=== PATIENT | female | born 1940 | race Caucasian/White ===

== ENCOUNTER 2019-07-20 11:12 | Emergency (ER) | payer MEDICARE, OTHER ==
[~2019-07-20] VITALS: Ht 167.6 cm; Wt 78.2 kg
[2019-07-20 11:27] VITALS: BP 167/86
[2019-07-20] MEDS ORDERED: ketorolac tromethamine 15mg/ml inj. IM ONE (13:00)
== END 2019-07-20 15:14 | disposition home or self-care (01) ==
LOC: ER 11:13
DX: M54.5 Low back pain (principal); I48.91 Unspecified atrial fibrillation; I25.10 Atherosclerotic heart disease of native coronary artery without angina pectoris; E78.00 Pure hypercholesterolemia, unspecified; Z88.5 Allergy status to narcotic agent
CPT/HCPCS: 74176; 96372; 99284; J1885

== ENCOUNTER 2019-12-02 22:24 | Inpatient (IN) | payer BC, MEDICARE, OTHER ==
[~2019-12-02] VITALS: Ht 157.5 cm; Wt 97.1 kg
[~2019-12-02 22:24] MED LIST: etomidate 2mg/ml inj. ONE; heparin, porcine-25,000 units/D5-250ml premix IV ONE; rocuronium 10mg/ml inj IV ONE; sodium bicarbonate (8.4%) 1 mEq/ml syringe ONE
--- NOTE | 2019-12-02 22:25 | NUR ---
PT ARRIVED IN ER AT 2224 WITH CPR IN PROGRESS. 2227 1 MG EPI AND 1 L NS ADMINISTERED. 2227 1 AMP CALCIUM. 9 1 AMP BICARB. 2230 ROSC HR 107 BP 172/62 SPO2 85/ PETCO2 26 1 MG EPI
[2019-12-02] MEDS: heparin 25,000 UNIT/250ml bag 250 ML IV SCH ×2 (22:39→23:06)
[2019-12-02] MEDS ORDERED: heparin 10,000 units/1 ML INJ IV ONE (22:40)
[2019-12-02 22:51] LABS: ABG HCO3 14.3 mmol/L (22.0-26.0); ABG OXYGEN SATURATION 89.6 % (95-98); ABG PH (T) 7.104 (7.350-7.450); ABG PO2 (T) 74.5 mmHg (83-108); ALLEN'S TEST POSITIVE; FCOHb 0.3 % (0.5-1.5); FMetHb 0.2 % (0.3-1.12); FO2Hb 89.2 % (94-100); PATIENT TEMPERATURE 36.1; PEEP 5 cm H2O; RESPIRATORY RATE 16 b/min; TIDAL VOLUME 475 mL; TOTAL HEMOGLOBIN 11.4 G/dl (12.0-16.0)
[2019-12-02 22:57] LABS: PARTIAL THROMBOPLASTIN TIME 28 SECONDS (22-32)
[2019-12-02 23:02] LABS: ALANINE AMINOTRANSFERASE 149 U/L (12-78); ALBUMIN 3.1 G/DL (3.4-5.0); ALBUMIN/GLOBULIN RATIO 1.2 (1.1-1.5); ALKALINE PHOSPHATASE 74 IU/L (46-116); ANION GAP 13 (8-16); ASPARTATE AMINO TRANSFERASE 136 U/L (10-37); BILIRUBIN,TOTAL 0.2 MG/DL (0.1-1.0); BLOOD UREA NITROGEN 30 MG/DL (7-18); BUN/CREATININE RATIO 23.8 (6.6-38.0); CALCIUM 7.7 MG/DL (8.5-10.1); CHLORIDE 108 MMOL/L (99-107); CREATININE 1.26 MG/DL (0.40-0.90); GLUCOSE 197 MG/DL (70-104); POTASSIUM 3.2 MMOL/L (3.5-5.1); SODIUM 142 MMOL/L (135-145); TOTAL CARBON DIOXIDE 20.8 MMOL/L (24-32); TOTAL PROTEIN 5.7 G/DL (6.4-8.2); eGFR 41 ML/MIN
[2019-12-02 23:04] LABS: EOSINOPHILS # (AUTO) 0.2 X10'3 (0-0.9); EOSINOPHILS % (AUTO) 1.5 % (0-6); HEMOGLOBIN 11.8 g/dl (12.0-16.0); LYMPHOCYTES # (AUTO) 7.3 X10'3 (1.1-4.8); MONOCYTES # (AUTO) 0.5 X10'3 (0-0.9); NEUTROPHILS # (AUTO) 3.1 X10'3 (1.8-7.7); WHITE BLOOD COUNT 11.1 X10'3 (4.5-11.0)
--- NOTE | 2019-12-02 23:05 | NUR ---
DR. LARA AT THE BEDSIDE PT GOING TO MAKEUP ARTISTRY INSTRUCTOR. dR LARA VERBAL ORDER FOR 6000 UNITS OF HEPARIN BOLUS INSTEAD OF 4000 UNITS FROM PROTOCAOL. CHARGE NURSE VERFIED.
--- NOTE | 2019-12-02 23:05 | NUR ---
PT HAD A RUN OF V TACH. DR ALVARADO CALLED TO BEDSIDE. [address] ALVARADO AT BEDSIDE.
[2019-12-02 23:06] LABS: BASOPHILS # (AUTO) 0.1 X10'3 (0-0.2); BASOPHILS % (AUTO) 0.6 % (0-1); LYMPHOCYTES % (AUTO) 65.4 % (21-51); MEAN CORPUSCULAR HEMOGLOBIN 31.8 PG (27.0-31.0); MEAN CORPUSCULAR HGB CONC 32.9 g/dL (33.0-36.5); MEAN CORPUSCULAR VOLUME 96.5 FL (78-98); MEAN PLATELET VOLUME 8.8 FL (7.4-10.4); MONOCYTES % (AUTO) 4.6 % (2-12); NEUTROPHILS % (AUTO) 27.9 % (42-75); PLATELET COUNT 155 X10'3 (140-440); RED BLOOD COUNT 3.73 X10'6 (4.20-5.60); RED CELL DISTRIBUTION WIDTH 13.8 % (11.5-14.5)
[2019-12-02] MEDS ORDERED: midazolam 2 mg/2 ml injection ONE (23:10)
[2019-12-02] MEDS ORDERED: tirofiban 5mg in NS 100mL 100 ML IV ONE (23:10)
[2019-12-02] MEDS ORDERED: fentaNYL/PF 50MCG/1 ML 2ML syringe ONE (23:10)
[2019-12-02] MEDS ORDERED: iohexol 350 MG/1 ML 200ml bottle ONE (23:11)
[2019-12-02] MEDS ORDERED: LIDOcaine 1% (10mg/ml)w/preservative injection 20ml MDV ONE (23:11)
[2019-12-02] MEDS ORDERED: heparin 25,000 UNIT/250ml bag 250 ML IV ONE (23:11)
[2019-12-02] MEDS ORDERED: heparin 1,000unit/ml 10ml vial 10 ML ONE (23:11)
[2019-12-02] MEDS ORDERED: iohexol 350 MG/ML 50ML vial IV ONE (23:11)
[2019-12-02] MEDS ORDERED: midazolam 100mg in NS 100ml 100 ML IV PRN (23:12)
[2019-12-02] MEDS ORDERED: FENTANYL-0.9 % NACL/PF 100 ML IV PRN (23:12)
[2019-12-02] MEDS: amiodarone/D5 360MG/200ML BAG 200 ML IV SCH (23:14)
[2019-12-02] MEDS ORDERED: fentaNYL/PF 50MCG/1 ML 2ML syringe IV PRN (23:15)
[2019-12-02] MEDS ORDERED: midazolam 2 mg/2 ml injection IV ONE (23:15)
--- NOTE | 2019-12-02 23:15 | NUR ---
COOLING MEASURE IMPLIMENTED, THOMPSON CATH INSERTED.
[2019-12-02] MEDS ORDERED: acetaminophen 325mg tablet PO PRN ×2 (23:20)
[2019-12-02] MEDS ORDERED: potassium Cl 20 mEq SR tablet PO PRN ×2 (23:20)
[2019-12-02] MEDS ORDERED: magnesium hydroxide 30ml (MOM) UD suspension PO PRN (23:20)
[2019-12-02] MEDS ORDERED: ipratropium/albuterol 3ml nebule NEB PRN (23:20)
[2019-12-02] MEDS: K, MAG and/or Phos replacement - Verify level? MC SCH (23:20)
[2019-12-02] MEDS ORDERED: ondansetron/PF 4mg/2ml inj IV PRN (23:20)
[2019-12-02] MEDS ORDERED: CISatracurium **Bolus** 2 mg/ml inj IV PRN (23:25)
--- NOTE | 2019-12-02 23:26 | NUR ---
OFF TO TRACK EQUIPMENT OPERATOR
[2019-12-02 23:28] LABS: TOTAL CELLS COUNTED 100
[2019-12-02 23:29] LABS: PLATELET ESTIMATE NORMAL
[2019-12-02] MEDS ORDERED: DOBUTamine-DoBUTrex 500mg/D5W 250 ML IV ONE (23:39)
[2019-12-03] VITALS (36 sets, daily range): BP systolic 64–117; BP diastolic 32–69
[2019-12-03] MEDS ORDERED: fentaNYL/PF 50MCG/1 ML 2ML syringe ONE (00:26)
[2019-12-03] MEDS ORDERED: midazolam 2 mg/2 ml injection ONE (00:27)
[2019-12-03] MEDS ORDERED: NORepinephrine 8mg/ 250ml NS 250 ML IV ONE (01:12)
[2019-12-03] MEDS ORDERED: NORepinephrine inj. 8 MG in normal saline 250ml IV soln 242 ML IV SCH (01:15)
[2019-12-03 01:31] LABS: OXYGEN SATURATION (MIXED VEN) 42.5 % (60-80); PO2 MIXED VENOUS (TEMP COR) 23.6 mmHg (35-46)
[2019-12-03 01:35] LABS: ABG BASE EXCESS -10.1 mmol/L (-2.0-3.0); ABG HCO3 15.2 mmol/L (22.0-26.0); ABG OXYGEN SATURATION 83.5 % (95-98); ABG PCO2 (T) 29.2 mmHg (35.0-45.0); ABG PH (T) 7.325 (7.350-7.450); ABG PO2 (T) 45.8 mmHg (83-108); FCOHb 0.3 % (0.5-1.5); FO2Hb 83.2 % (94-100); PATIENT TEMPERATURE 35.1; PEEP 5 cm H2O; RESPIRATORY RATE 20 b/min; TIDAL VOLUME 475 mL; TOTAL HEMOGLOBIN 12.3 G/dl (12.0-16.0)
[2019-12-03] MEDS: NORepinephrine 8 MG in NS 250ml IV soln IV SCH ×4 (01:49→20:30)
[2019-12-03] MEDS ORDERED: pantoprazole 40 MG vial IV ONE (02:25)
[2019-12-03] MEDS ORDERED: cyclobenzaprine 10mg tablet PO PRN (02:30)
[2019-12-03] MEDS ORDERED: magnesium hydroxide 30ml (MOM) UD suspension PO PRN (02:30)
[2019-12-03] MEDS ORDERED: acetaminophen 325mg tablet PO PRN (02:30)
[2019-12-03] MEDS ORDERED: OXAZEpam 15mg capsule PO PRN (02:30)
[2019-12-03] MEDS ORDERED: proCHLORperazine 10 MG/2 ml inj IV PRN (02:30)
--- NOTE | 2019-12-03 02:30 | NUR ---
Gladis called and update given on patient's condition; CO/CI low despite dobutamine at 8mcg; mixed venous 42; aware that pt having moderate BRB orally as well as some blood in stool; Dr. Phillips called and updated, MD still wanting pt to continue heparin/aggarastat and give dose of plavix 300 from quality assurance/r&d lab technician.
[2019-12-03] MEDS: normal saline 1000ml 1,000 ML IV SCH (02:35)
[2019-12-03] MEDS ORDERED: clopidogrel 75mg tablet PO ONE (02:40)
[2019-12-03 02:45] LABS: BASOPHILS % (AUTO) 0.2 % (0-1); EOSINOPHILS # (AUTO) 0.1 X10'3 (0-0.9); EOSINOPHILS % (AUTO) 0.5 % (0-6); HEMATOCRIT 36.2 % (35.0-45.0); HEMOGLOBIN 12.1 g/dl (12.0-16.0); LYMPHOCYTES # (AUTO) 1.7 X10'3 (1.1-4.8); LYMPHOCYTES % (AUTO) 13.3 % (21-51); MEAN CORPUSCULAR HEMOGLOBIN 31.4 PG (27.0-31.0); MEAN CORPUSCULAR HGB CONC 33.4 g/dL (33.0-36.5); MEAN PLATELET VOLUME 8.3 FL (7.4-10.4); MONOCYTES # (AUTO) 0.4 X10'3 (0-0.9); MONOCYTES % (AUTO) 3.1 % (2-12); NEUTROPHILS # (AUTO) 10.7 X10'3 (1.8-7.7); NEUTROPHILS % (AUTO) 82.9 % (42-75); PLATELET COUNT 221 X10'3 (140-440); RED BLOOD COUNT 3.85 X10'6 (4.20-5.60); RED CELL DISTRIBUTION WIDTH 13.5 % (11.5-14.5); WHITE BLOOD COUNT 12.9 X10'3 (4.5-11.0)
[2019-12-03 03:22] LABS: ALANINE AMINOTRANSFERASE 657 U/L (12-78); ALBUMIN 2.9 G/DL (3.4-5.0); ALBUMIN/GLOBULIN RATIO 1.1 (1.1-1.5); ALKALINE PHOSPHATASE 93 IU/L (46-116); ANION GAP 14 (8-16); ASPARTATE AMINO TRANSFERASE 1176 U/L (10-37); BILIRUBIN,TOTAL 0.4 MG/DL (0.1-1.0); BLOOD UREA NITROGEN 36 MG/DL (7-18); BUN/CREATININE RATIO 29.8 (6.6-38.0); CALCIUM 8.9 MG/DL (8.5-10.1); CHLORIDE 108 MMOL/L (99-107); CREATININE 1.21 MG/DL (0.40-0.90); GLUCOSE 187 MG/DL (70-104); MAGNESIUM 1.8 MG/DL (1.5-2.4); PHOSPHORUS 4.6 MG/DL (2.3-4.5); POTASSIUM 3.5 MMOL/L (3.5-5.1); SODIUM 141 MMOL/L (135-145); TOTAL CARBON DIOXIDE 18.6 MMOL/L (24-32); TOTAL PROTEIN 5.6 G/DL (6.4-8.2); eGFR 43 ML/MIN
--- NOTE | 2019-12-03 03:30 | NUR ---
PT arrived from Hospital Laboratory Technician @ 0045. PT already in ICU bed and placed on bedside monitor. PT has arterial and venous sheath to RT groin, site is oozy and hematoma present and stable thus far. PA line in place. PT has PIV x2, one to each arm. De Los Santos in place draining to gravity. PT is intubated and mechanically vented, tolerating settings well, O2 sat >96%. Sedated with Fentanyl and Versed, tolerating well. Cooling measures began @ 0230 via the [place], tolerating fairly, Sedating has been increased d/t PT shivering. Bed is locked and low. Will continue to monitor.
[2019-12-03 03:45] LABS: ABG BASE EXCESS -8.4 mmol/L (-2.0-3.0); ABG HCO3 15.8 mmol/L (22.0-26.0); ABG OXYGEN SATURATION 95.1 % (95-98); ABG PCO2 (T) 26.1 mmHg (35.0-45.0); ABG PH (T) 7.389 (7.350-7.450); ABG PO2 (T) 67.7 mmHg (83-108); FCOHb 0.3 % (0.5-1.5); FMetHb 0.1 % (0.3-1.12); FO2Hb 94.7 % (94-100); PATIENT TEMPERATURE 34.4; PEEP 8 cm H2O; RESPIRATORY RATE 20 b/min; TIDAL VOLUME 475 mL; TOTAL HEMOGLOBIN 12.6 G/dl (12.0-16.0)
[2019-12-03] MEDS: amiodarone/D5 360MG/200ML BAG 200 ML IV SCH ×4 (04:06→23:26)
[2019-12-03] MEDS: tirofiban 5mg in NS 100mL 100 ML IV SCH ×2 (04:06→08:21)
--- NOTE | 2019-12-03 06:15 | NUR ---
Patient in room ICU 2042. I have received report from evening or night nurse supervisor and had the opportunity to ask questions and assume patient care.
--- NOTE | 2019-12-03 06:45 | NUR ---
Problems reprioritized. Patient report given, questions answered & plan of care reviewed with Anjelica SUAZO .
[2019-12-03] MEDS: docusate sod 100mg capsule PO SCH ×2 (08:00→20:00)
[2019-12-03] MEDS ORDERED: aspirin 81mg tab.chew PO SCH (08:00)
[2019-12-03] MEDS: pantoprazole 40 MG vial IV SCH (08:10)
[2019-12-03] MEDS: FENTANYL-0.9 % NACL/PF 100 ML IV PRN ×2 (08:22→17:53)
[2019-12-03 08:26] LABS: BASOPHILS % (AUTO) 0.3 % (0-1); EOSINOPHILS % (AUTO) 0.3 % (0-6); HEMATOCRIT 32.1 % (35.0-45.0); LYMPHOCYTES # (AUTO) 1.6 X10'3 (1.1-4.8); LYMPHOCYTES % (AUTO) 17.3 % (21-51); MEAN CORPUSCULAR HEMOGLOBIN 32.1 PG (27.0-31.0); MEAN CORPUSCULAR HGB CONC 34.2 g/dL (33.0-36.5); MEAN CORPUSCULAR VOLUME 94.1 FL (78-98); MEAN PLATELET VOLUME 8.4 FL (7.4-10.4); MONOCYTES # (AUTO) 0.2 X10'3 (0-0.9); MONOCYTES % (AUTO) 2.7 % (2-12); NEUTROPHILS # (AUTO) 7.4 X10'3 (1.8-7.7); NEUTROPHILS % (AUTO) 79.4 % (42-75); PLATELET COUNT 176 X10'3 (140-440); RED BLOOD COUNT 3.41 X10'6 (4.20-5.60); RED CELL DISTRIBUTION WIDTH 13.6 % (11.5-14.5); WHITE BLOOD COUNT 9.3 X10'3 (4.5-11.0)
[2019-12-03] MEDS: K, MAG and/or Phos replacement - Verify level? MC SCH (08:37)
[2019-12-03 09:14] LABS: ALBUMIN 2.5 G/DL (3.4-5.0); ANION GAP 12 (8-16); BLOOD UREA NITROGEN 36 MG/DL (7-18); BUN/CREATININE RATIO 28.1 (6.6-38.0); CALCIUM 7.9 MG/DL (8.5-10.1); CHLORIDE 111 MMOL/L (99-107); CREATININE 1.28 MG/DL (0.40-0.90); GLUCOSE 172 MG/DL (70-104); MAGNESIUM 1.4 MG/DL (1.5-2.4); SODIUM 141 MMOL/L (135-145); TOTAL CARBON DIOXIDE 18.2 MMOL/L (24-32); eGFR 40 ML/MIN
[2019-12-03] MEDS: DOBUTamine-DoBUTrex 500mg/D5W 250 ML IV PRN ×2 (09:18→17:53)
--- NOTE | 2019-12-03 09:55 | NUR ---
Initial: patient presented to ED after cardiac arrest at home per H&P. History of Atrial Fibrillation, Coronary Artery Disease, High Cholesterol. Now intubated and sedated, hypothermia protocol. No tube feedings to begin today. Will continue to follow and monitor for rewarming. Recommend: 1. If TF while intubated when rewarmed recommend vital high protein at 70 ml/hr 2. If TF while intubated prealbumin q saturday and , daily weights, and monitor for additional water flush 3. weight per rx Addendum: 12/03/19 at [address] Amended: Links added.
[2019-12-03 09:56] LABS: CKMB RELATIVE INDEX 8.8 RATIO (0-2.5); CREATINE KINASE 6588 U/L (26-192)
[2019-12-03 09:58] LABS: POTASSIUM 2.4 MMOL/L (3.5-5.1)
[2019-12-03] MEDS ORDERED: CLOPIDOGREL BISULFATE 300MG TAB PO ONE (10:00)
[2019-12-03] MEDS: potassium Cl 20mEq/100mL bag 100 ML IV PRN ×4 (10:26→16:24)
--- NOTE | 2019-12-03 10:30 | NUR ---
Dr Phillips Called by Dr Carcamo for update no new orders at this time.
[2019-12-03] MEDS ORDERED: magnesium 2GM in 50ml NS 50 ML IV PRN (10:40)
[2019-12-03] MEDS ORDERED: dextrose 50%-water 50ml dispensing syringe IV PRN ×2 (10:40)
[2019-12-03] MEDS ORDERED: glucagon, human recombinant 1mg kit SUBCUT PRN (10:40)
[2019-12-03] MEDS ORDERED: MESSAGE TO PHARMACY PO ONE (10:40)
[2019-12-03] MEDS ORDERED: dextrose ORAL solution 15 GM/59 ML bottle PO PRN ×2 (10:40)
[2019-12-03] MEDS: magnesium 4gm in 100ml NS 100 ML IV PRN (11:04)
[2019-12-03 11:25] LABS: HEMOGLOBIN A1C 5.9 % (4.5-6.2)
--- NOTE | 2019-12-03 12:00 | NUR ---
decreased bood pressure md notified ordered vasoressin, started
[2019-12-03] MEDS: midazolam 100mg in NS 100ml 100 ML IV PRN (12:11)
[2019-12-03] MEDS: vasopressin inj. 40 UNIT in normal saline 50ml IV soln 38 ML IV SCH ×2 (12:21→23:05)
[2019-12-03] MEDS ORDERED: ASPI-611 PO (12:55)
[2019-12-03] MEDS ORDERED: ROSU5TAB12 PO (12:55)
[2019-12-03] MEDS ORDERED: BIOT10TA PO (12:55)
[2019-12-03] MEDS ORDERED: PSYL0.5210 PO (12:55)
[2019-12-03] MEDS ORDERED: CHOL10006 PO (12:55)
[2019-12-03] MEDS ORDERED: FLEC50TA PO (12:55)
[2019-12-03] MEDS ORDERED: CLOB15CR11 TOP (12:55)
[2019-12-03] MEDS ORDERED: FLUT16SP16 BOTHNARES (12:55)
[2019-12-03] MEDS ORDERED: LORA-660 PO (12:55)
[2019-12-03] MEDS ORDERED: METO-384 PO (12:55)
[2019-12-03] MEDS ORDERED: VITA1CAP19 PO (12:55)
[2019-12-03] MEDS ORDERED: BUTA1CAP3 PO (12:55)
--- NOTE | 2019-12-03 13:30 | NUR ---
Dr Phillips here discussed echo, lab results and gtts, ordered to dc aggrastat
[2019-12-03 14:10] LABS: BASOPHILS % (AUTO) 0.2 % (0-1); EOSINOPHILS % (AUTO) 0.4 % (0-6); HEMATOCRIT 32.1 % (35.0-45.0); HEMOGLOBIN 10.8 g/dl (12.0-16.0); LYMPHOCYTES # (AUTO) 1.5 X10'3 (1.1-4.8); MEAN CORPUSCULAR HEMOGLOBIN 31.4 PG (27.0-31.0); MEAN CORPUSCULAR HGB CONC 33.8 g/dL (33.0-36.5); MEAN PLATELET VOLUME 8.4 FL (7.4-10.4); MONOCYTES # (AUTO) 0.5 X10'3 (0-0.9); MONOCYTES % (AUTO) 6.8 % (2-12); NEUTROPHILS # (AUTO) 5.2 X10'3 (1.8-7.7); NEUTROPHILS % (AUTO) 71.6 % (42-75); PLATELET COUNT 183 X10'3 (140-440); RED BLOOD COUNT 3.45 X10'6 (4.20-5.60); RED CELL DISTRIBUTION WIDTH 13.3 % (11.5-14.5); WHITE BLOOD COUNT 7.3 X10'3 (4.5-11.0)
[2019-12-03] MEDS: insulin Lispro (HumaLOG) vial - multi-dose SQ SCH ×2 (14:16→21:17)
[2019-12-03 14:51] LABS: ALBUMIN 2.4 G/DL (3.4-5.0); ANION GAP 9 (8-16); BLOOD UREA NITROGEN 39 MG/DL (7-18); CALCIUM 7.5 MG/DL (8.5-10.1); CHLORIDE 111 MMOL/L (99-107); CREATININE 1.22 MG/DL (0.40-0.90); GLUCOSE 169 MG/DL (70-104); MAGNESIUM 3.3 MG/DL (1.5-2.4); POTASSIUM 3.4 MMOL/L (3.5-5.1); SODIUM 138 MMOL/L (135-145); TOTAL CARBON DIOXIDE 17.7 MMOL/L (24-32); eGFR 43 ML/MIN
[2019-12-03 15:08] LABS: CREATINE KINASE 6436 U/L (26-192)
[2019-12-03 16:47] LABS: CKMB RELATIVE INDEX 9.5 RATIO (0-2.5)
[2019-12-03] MEDS ORDERED: acetaminophen 325mg tablet NG PRN (17:35)
[2019-12-03] MEDS ORDERED: aspirin 81mg tab.chew NG SCH (17:38)
[2019-12-03] MEDS ORDERED: cyclobenzaprine 10mg tablet NG PRN (17:40)
[2019-12-03] MEDS ORDERED: magnesium hydroxide 30ml (MOM) UD suspension NG PRN ×2 (17:41)
[2019-12-03] MEDS ORDERED: POTASSIUM BICARB 20meq eff tab 20 MEQ TABLET.EFF PO PRN ×2 (17:42)
[2019-12-03] MEDS ORDERED: POTASSIUM BICARB 20meq eff tab 20 MEQ TABLET.EFF NG PRN ×2 (17:43)
[2019-12-03] MEDS ORDERED: dextrose ORAL solution 15 GM/59 ML bottle NG PRN ×2 (17:55)
--- NOTE | 2019-12-03 18:09 | NUR ---
Problems reprioritized. Patient report given, questions answered & plan of care reviewed with oncoming shift.
--- NOTE | 2019-12-03 18:44 | NUR ---
Patient in room ICU 2042. I have received report from Anjelica SUAZO, and had the opportunity to ask questions and assume patient care.
--- NOTE | 2019-12-03 19:45 | NUR ---
LISA Perez notified in regards to PT's home med [facility], there was a message on the eMAR in regards to the use of the medication with amiodarone. PT is on Amiodarone gtt. Order received to hold tonights dose and get clarification in the AM. Will continue to monitor.
[2019-12-03] MEDS ORDERED: flecainide 50mg tablet NG SCH (20:00)
[2019-12-03] MEDS ORDERED: psyllium seed 3.4 gm packet NG PRN (21:00)
[2019-12-03 21:01] LABS: BASOPHILS % (AUTO) 0.2 % (0-1); EOSINOPHILS % (AUTO) 0.2 % (0-6); HEMATOCRIT 30.3 % (35.0-45.0); HEMOGLOBIN 10.4 g/dl (12.0-16.0); LYMPHOCYTES # (AUTO) 1.3 X10'3 (1.1-4.8); LYMPHOCYTES % (AUTO) 18.9 % (21-51); MEAN CORPUSCULAR HEMOGLOBIN 32.1 PG (27.0-31.0); MEAN CORPUSCULAR HGB CONC 34.3 g/dL (33.0-36.5); MEAN CORPUSCULAR VOLUME 93.6 FL (78-98); MEAN PLATELET VOLUME 8.7 FL (7.4-10.4); MONOCYTES # (AUTO) 0.5 X10'3 (0-0.9); MONOCYTES % (AUTO) 7.1 % (2-12); NEUTROPHILS # (AUTO) 5.1 X10'3 (1.8-7.7); NEUTROPHILS % (AUTO) 73.6 % (42-75); PLATELET COUNT 178 X10'3 (140-440); RED BLOOD COUNT 3.24 X10'6 (4.20-5.60); RED CELL DISTRIBUTION WIDTH 13.3 % (11.5-14.5); WHITE BLOOD COUNT 6.9 X10'3 (4.5-11.0)
[2019-12-03] MEDS: clobetasol 0.05% cream 30gm TP SCH (21:13)
[2019-12-03] MEDS: insulin glargine (Lantus) pen - multi-dose SQ SCH (21:19)
[2019-12-03 21:41] LABS: ALBUMIN 2.3 G/DL (3.4-5.0); ANION GAP 13 (8-16); BLOOD UREA NITROGEN 40 MG/DL (7-18); BUN/CREATININE RATIO 34.8 (6.6-38.0); CALCIUM 7.5 MG/DL (8.5-10.1); CHLORIDE 110 MMOL/L (99-107); CREATININE 1.15 MG/DL (0.40-0.90); GLUCOSE 198 MG/DL (70-104); MAGNESIUM 2.3 MG/DL (1.5-2.4); POTASSIUM 4.1 MMOL/L (3.5-5.1); SODIUM 138 MMOL/L (135-145); eGFR 46 ML/MIN
[2019-12-03 22:22] LABS: CKMB RELATIVE INDEX 10.2 RATIO (0-2.5); CREATINE KINASE 5010 U/L (26-192)
[2019-12-03 22:25] LABS: TROPONIN I 240.06 NG/ML (0.0-0.05)
[2019-12-03 23:18] LABS: ALANINE AMINOTRANSFERASE 474 U/L (12-78); ALKALINE PHOSPHATASE 70 IU/L (46-116); ASPARTATE AMINO TRANSFERASE 866 U/L (10-37); BILIRUBIN,TOTAL 0.2 MG/DL (0.1-1.0); TOTAL PROTEIN 4.7 G/DL (6.4-8.2)
--- NOTE | 2019-12-03 23:45 | NUR ---
Recieived critical CO2 of 15.0. NO Ana notified, order received to draw a Lactic and ABG. After receiving ABG results order received for Bicarb gtt. Will continue to monitor.
[2019-12-04] VITALS (31 sets, daily range): BP systolic 89–121; BP diastolic 43–84
[2019-12-04] MEDS: NORepinephrine 8 MG in NS 250ml IV soln IV SCH ×8 (00:19→23:53)
[2019-12-04] MEDS: sodium bicarbonate (8.4%) inj. 100 MEQ in dextrose 5%-water 1,000 ML IV SCH ×2 (00:58→14:49)
[2019-12-04 01:21] LABS: ABG BASE EXCESS -12.8 mmol/L (-2.0-3.0); ABG HCO3 11.3 mmol/L (22.0-26.0); ABG OXYGEN SATURATION 94.4 % (95-98); ABG PCO2 (T) 18.5 mmHg (35.0-45.0); ABG PH (T) 7.384 (7.350-7.450); ABG PO2 (T) 65.6 mmHg (83-108); FCOHb 0.1 % (0.5-1.5); FMetHb 0.1 % (0.3-1.12); FO2Hb 94.2 % (94-100); PATIENT TEMPERATURE 33.4; PEEP 6 cm H2O; RESPIRATORY RATE 20 b/min; TIDAL VOLUME 475 mL; TOTAL HEMOGLOBIN 10.7 G/dl (12.0-16.0)
[2019-12-04] MEDS: FENTANYL-0.9 % NACL/PF 100 ML IV PRN ×3 (01:23→18:37)
[2019-12-04] MEDS: midazolam 100mg in NS 100ml 100 ML IV PRN ×2 (01:23→15:18)
[2019-12-04] MEDS: mineral oil/petrolatum ophthal oint EACHEYE SCH ×4 (02:00→20:36)
[2019-12-04] MEDS: DOBUTamine-DoBUTrex 500mg/D5W 250 ML IV PRN ×2 (02:38→12:36)
[2019-12-04] MEDS: insulin Lispro (HumaLOG) vial - multi-dose SQ SCH ×4 (02:47→20:51)
[2019-12-04 03:34] LABS: BASOPHILS % (AUTO) 0.1 % (0-1); EOSINOPHILS % (AUTO) 0.2 % (0-6); HEMATOCRIT 28.9 % (35.0-45.0); HEMOGLOBIN 9.9 g/dl (12.0-16.0); LYMPHOCYTES # (AUTO) 1.2 X10'3 (1.1-4.8); LYMPHOCYTES % (AUTO) 16.7 % (21-51); MEAN CORPUSCULAR HEMOGLOBIN 31.9 PG (27.0-31.0); MEAN CORPUSCULAR HGB CONC 34.2 g/dL (33.0-36.5); MEAN CORPUSCULAR VOLUME 93.3 FL (78-98); MEAN PLATELET VOLUME 8.7 FL (7.4-10.4); MONOCYTES # (AUTO) 0.4 X10'3 (0-0.9); MONOCYTES % (AUTO) 5.6 % (2-12); NEUTROPHILS # (AUTO) 5.8 X10'3 (1.8-7.7); NEUTROPHILS % (AUTO) 77.4 % (42-75); PLATELET COUNT 175 X10'3 (140-440); RED CELL DISTRIBUTION WIDTH 13.7 % (11.5-14.5); WHITE BLOOD COUNT 7.4 X10'3 (4.5-11.0)
[2019-12-04 04:06] LABS: ABG BASE EXCESS -11.5 mmol/L (-2.0-3.0); ABG HCO3 13.4 mmol/L (22.0-26.0); ABG OXYGEN SATURATION 90.7 % (95-98); ABG PCO2 (T) 23.5 mmHg (35.0-45.0); ABG PH (T) 7.357 (7.350-7.450); ABG PO2 (T) 52.6 mmHg (83-108); FCOHb 0.2 % (0.5-1.5); FMetHb 0.3 % (0.3-1.12); FO2Hb 90.2 % (94-100); PATIENT TEMPERATURE 33.7; PEEP 6 cm H2O; RESPIRATORY RATE 20 b/min; TIDAL VOLUME 475 mL
[2019-12-04 04:16] LABS: ALANINE AMINOTRANSFERASE 415 U/L (12-78); ALBUMIN 2.2 G/DL (3.4-5.0); ALKALINE PHOSPHATASE 66 IU/L (46-116); ANION GAP 12 (8-16); ASPARTATE AMINO TRANSFERASE 674 U/L (10-37); BILIRUBIN,TOTAL 0.2 MG/DL (0.1-1.0); BLOOD UREA NITROGEN 39 MG/DL (7-18); BUN/CREATININE RATIO 33.1 (6.6-38.0); CALCIUM 7.4 MG/DL (8.5-10.1); CHLORIDE 109 MMOL/L (99-107); CREATININE 1.18 MG/DL (0.40-0.90); GLUCOSE 249 MG/DL (70-104); MAGNESIUM 2.1 MG/DL (1.5-2.4); PHOSPHORUS 4.4 MG/DL (2.3-4.5); POTASSIUM 3.9 MMOL/L (3.5-5.1); SODIUM 137 MMOL/L (135-145); TOTAL CARBON DIOXIDE 15.8 MMOL/L (24-32); TOTAL PROTEIN 4.5 G/DL (6.4-8.2); eGFR 44 ML/MIN
[2019-12-04 04:26] LABS: CREATINE KINASE 3885 U/L (26-192)
[2019-12-04] MEDS: amiodarone/D5 360MG/200ML BAG 200 ML IV SCH ×4 (04:40→23:42)
[2019-12-04] MEDS: heparin 25,000 UNIT/250ml bag 250 ML IV SCH (05:34)
[2019-12-04] MEDS: heparin 10,000 units/1 ML INJ IV PRN ×2 (06:02→10:02)
--- NOTE | 2019-12-04 06:15 | NUR ---
Patient in room ICU 2042. I have received report from PREVIOUS SHIFT and had the opportunity to ask questions and assume patient care.
--- NOTE | 2019-12-04 06:39 | NUR ---
Problems reprioritized. Patient report given, questions answered & plan of care reviewed with Tonja SUAZO.
[2019-12-04] MEDS: pantoprazole 40 MG vial IV SCH (08:17)
[2019-12-04] MEDS: vitamin D (cholecalciferol) 1,000 unit tablet NG SCH (08:17)
[2019-12-04] MEDS: atorvastatin 20mg tablet NG SCH (08:17)
[2019-12-04] MEDS: clopidogrel 75mg tablet NG SCH (08:17)
[2019-12-04] MEDS: aspirin 81mg tab.chew NG SCH (08:17)
[2019-12-04] MEDS: docusate sod 100mg capsule PO SCH ×2 (08:17→20:00)
[2019-12-04] MEDS: clobetasol 0.05% cream 30gm TP SCH ×2 (08:25→20:36)
[2019-12-04 08:35] LABS: BASOPHILS % (AUTO) 0.2 % (0-1); EOSINOPHILS # (AUTO) 0.1 X10'3 (0-0.9); EOSINOPHILS % (AUTO) 0.8 % (0-6); HEMATOCRIT 25.7 % (35.0-45.0); HEMOGLOBIN 8.8 g/dl (12.0-16.0); LYMPHOCYTES # (AUTO) 1.4 X10'3 (1.1-4.8); LYMPHOCYTES % (AUTO) 19.6 % (21-51); MEAN CORPUSCULAR HEMOGLOBIN 31.8 PG (27.0-31.0); MEAN CORPUSCULAR HGB CONC 34.1 g/dL (33.0-36.5); MEAN CORPUSCULAR VOLUME 93.1 FL (78-98); MEAN PLATELET VOLUME 8.8 FL (7.4-10.4); MONOCYTES # (AUTO) 0.2 X10'3 (0-0.9); MONOCYTES % (AUTO) 3.3 % (2-12); NEUTROPHILS # (AUTO) 5.4 X10'3 (1.8-7.7); NEUTROPHILS % (AUTO) 76.1 % (42-75); PLATELET COUNT 147 X10'3 (140-440); RED BLOOD COUNT 2.76 X10'6 (4.20-5.60); RED CELL DISTRIBUTION WIDTH 13.8 % (11.5-14.5); WHITE BLOOD COUNT 7.1 X10'3 (4.5-11.0)
[2019-12-04] MEDS: K, MAG and/or Phos replacement - Verify level? MC SCH (08:38)
--- NOTE | 2019-12-04 10:00 | NUR ---
Dr anderson here to see patient, orders received.
[2019-12-04 10:33] LABS: ALBUMIN 1.9 G/DL (3.4-5.0); ANION GAP 11 (8-16); BLOOD UREA NITROGEN 39 MG/DL (7-18); BUN/CREATININE RATIO 33.9 (6.6-38.0); CALCIUM 6.9 MG/DL (8.5-10.1); CHLORIDE 109 MMOL/L (99-107); CREATININE 1.15 MG/DL (0.40-0.90); GLUCOSE 241 MG/DL (70-104); PHOSPHORUS 3.9 MG/DL (2.3-4.5); POTASSIUM 3.7 MMOL/L (3.5-5.1); SODIUM 137 MMOL/L (135-145); TOTAL CARBON DIOXIDE 17.5 MMOL/L (24-32); eGFR 46 ML/MIN
--- NOTE | 2019-12-04 11:25 | NUR ---
Reassessment: Pt remains intubated and on hypothermia protocol, currently in rewarming phase per RN at critical care rounds. No TF initiation at this time. Pt with low Nabil of 9. Per physical assessment pt with no edema or wounds. LBM 3/. Will continue to follow closely. Recommend: 1. If TF while intubated when rewarmed recommend vital high protein at 70 ml/hr 2. If TF while intubated prealbumin q Saturday and , daily weights, and monitor for additional water flush 3. weight per rx 4. PO diet advancement to heart healthy as medically indicated following extubation Addendum: 12/04/19 at [address] Amended: Links added.
[2019-12-04 11:28] LABS: UA EOSINOPHILS NO EOS /HPF
[2019-12-04 11:34] LABS: MAGNESIUM 1.8 MG/DL (1.5-2.4)
[2019-12-04] MEDS ORDERED: gelatin sponge, absorbable (Gelfoam 100) sponge TP ONE (14:30)
[2019-12-04 14:55] LABS: BASOPHILS % (AUTO) 0.1 % (0-1); EOSINOPHILS # (AUTO) 0.1 X10'3 (0-0.9); HEMATOCRIT 24.9 % (35.0-45.0); HEMOGLOBIN 8.5 g/dl (12.0-16.0); LYMPHOCYTES # (AUTO) 1.5 X10'3 (1.1-4.8); LYMPHOCYTES % (AUTO) 18.5 % (21-51); MEAN CORPUSCULAR HEMOGLOBIN 31.5 PG (27.0-31.0); MEAN CORPUSCULAR HGB CONC 34.2 g/dL (33.0-36.5); MEAN CORPUSCULAR VOLUME 92.2 FL (78-98); MONOCYTES # (AUTO) 0.6 X10'3 (0-0.9); MONOCYTES % (AUTO) 7.1 % (2-12); NEUTROPHILS # (AUTO) 5.8 X10'3 (1.8-7.7); NEUTROPHILS % (AUTO) 73.3 % (42-75); PLATELET COUNT 157 X10'3 (140-440); RED CELL DISTRIBUTION WIDTH 13.7 % (11.5-14.5); WHITE BLOOD COUNT 7.9 X10'3 (4.5-11.0)
--- NOTE | 2019-12-04 15:00 | NUR ---
pedro in and out of a-fib and sinus tac. Dr Carcamo aware orders received.
[2019-12-04] MEDS: normal saline 1000ml 1,000 ML IV SCH (15:03)
[2019-12-04 15:33] LABS: ALBUMIN 1.8 G/DL (3.4-5.0); ANION GAP 9 (8-16); BLOOD UREA NITROGEN 40 MG/DL (7-18); BUN/CREATININE RATIO 32.8 (6.6-38.0); CALCIUM 6.5 MG/DL (8.5-10.1); CHLORIDE 108 MMOL/L (99-107); CREATININE 1.22 MG/DL (0.40-0.90); GLUCOSE 199 MG/DL (70-104); MAGNESIUM 1.8 MG/DL (1.5-2.4); PHOSPHORUS 3.6 MG/DL (2.3-4.5); SODIUM 136 MMOL/L (135-145); TOTAL CARBON DIOXIDE 18.9 MMOL/L (24-32); eGFR 43 ML/MIN
[2019-12-04 15:35] LABS: CKMB RELATIVE INDEX 17.4 RATIO (0-2.5)
[2019-12-04 15:36] LABS: CREATINE KINASE 2264 U/L (26-192)
[2019-12-04 15:56] LABS: TROPONIN I 108.09 NG/ML (0.0-0.05)
--- NOTE | 2019-12-04 18:09 | NUR ---
Problems reprioritized. Patient report given, questions answered & plan of care reviewed with oncoming shift.
--- NOTE | 2019-12-04 18:23 | NUR ---
Patient in room ICU 2042. I have received report from Tonja SUAZO, and had the opportunity to ask questions and assume patient care.
[2019-12-04] MEDS: insulin glargine (Lantus) pen - multi-dose SQ SCH (20:51)
--- NOTE | 2019-12-04 22:15 | NUR ---
Received results for PTT, heparin gtt turned back on and decreases appropriately per protocol. Will continue to monitor.
[2019-12-04] MEDS: vasopressin inj. 40 UNIT in normal saline 50ml IV soln 38 ML IV SCH (23:52)
[2019-12-05] VITALS (28 sets, daily range): BP systolic 85–123; BP diastolic 30–57
[2019-12-05] MEDS: heparin 25,000 UNIT/250ml bag 250 ML IV SCH (00:39)
[2019-12-05 01:12] LABS: BASOPHILS % (AUTO) 0.2 % (0-1); EOSINOPHILS # (AUTO) 0.1 X10'3 (0-0.9); EOSINOPHILS % (AUTO) 0.9 % (0-6); HEMATOCRIT 23.7 % (35.0-45.0); HEMOGLOBIN 8.2 g/dl (12.0-16.0); LYMPHOCYTES # (AUTO) 1.4 X10'3 (1.1-4.8); MEAN CORPUSCULAR HEMOGLOBIN 31.9 PG (27.0-31.0); MEAN CORPUSCULAR HGB CONC 34.4 g/dL (33.0-36.5); MEAN CORPUSCULAR VOLUME 92.8 FL (78-98); MEAN PLATELET VOLUME 9.6 FL (7.4-10.4); MONOCYTES # (AUTO) 0.6 X10'3 (0-0.9); MONOCYTES % (AUTO) 7.8 % (2-12); NEUTROPHILS # (AUTO) 5.7 X10'3 (1.8-7.7); NEUTROPHILS % (AUTO) 73.1 % (42-75); PLATELET COUNT 154 X10'3 (140-440); RED BLOOD COUNT 2.55 X10'6 (4.20-5.60); RED CELL DISTRIBUTION WIDTH 13.7 % (11.5-14.5); WHITE BLOOD COUNT 7.8 X10'3 (4.5-11.0)
[2019-12-05 01:21] LABS: ALANINE AMINOTRANSFERASE 299 U/L (12-78); ALBUMIN 1.8 G/DL (3.4-5.0); ALBUMIN/GLOBULIN RATIO 0.8 (1.1-1.5); ALKALINE PHOSPHATASE 68 IU/L (46-116); ANION GAP 11 (8-16); ASPARTATE AMINO TRANSFERASE 344 U/L (10-37); BILIRUBIN,TOTAL 0.2 MG/DL (0.1-1.0); BLOOD UREA NITROGEN 39 MG/DL (7-18); BUN/CREATININE RATIO 28.1 (6.6-38.0); CALCIUM 6.6 MG/DL (8.5-10.1); CHLORIDE 107 MMOL/L (99-107); CREATININE 1.39 MG/DL (0.40-0.90); GLUCOSE 142 MG/DL (70-104); MAGNESIUM 1.7 MG/DL (1.5-2.4); POTASSIUM 4.2 MMOL/L (3.5-5.1); SODIUM 136 MMOL/L (135-145); TOTAL CARBON DIOXIDE 18.5 MMOL/L (24-32); TOTAL PROTEIN 4.1 G/DL (6.4-8.2); eGFR 37 ML/MIN
[2019-12-05] MEDS: mineral oil/petrolatum ophthal oint EACHEYE SCH ×4 (02:00→21:43)
--- NOTE | 2019-12-05 04:00 | NUR ---
PT's BP has been improving throughout shift and vasopressors have been able to be titrated down. PT tolerating well. Will continue to monitor.
[2019-12-05] MEDS: amiodarone/D5 360MG/200ML BAG 200 ML IV SCH ×4 (04:15→23:58)
[2019-12-05 04:45] LABS: ABG BASE EXCESS -7.3 mmol/L (-2.0-3.0); ABG HCO3 15.7 mmol/L (22.0-26.0); ABG OXYGEN SATURATION 95.6 % (95-98); ABG PH (T) 7.435 (7.350-7.450); FCOHb 0.3 % (0.5-1.5); FMetHb 0.2 % (0.3-1.12); FO2Hb 95.1 % (94-100); PATIENT TEMPERATURE 37.5; PEEP 6 cm H2O; RESPIRATORY RATE 20 b/min; TIDAL VOLUME 475 mL; TOTAL HEMOGLOBIN 8.3 G/dl (12.0-16.0)
[2019-12-05] MEDS: sodium bicarbonate (8.4%) inj. 100 MEQ in dextrose 5%-water 1,000 ML IV SCH ×2 (05:31→20:21)
--- NOTE | 2019-12-05 06:15 | NUR ---
Patient in room ICU 2042. I have received report from weir fisherman and had the opportunity to ask questions and assume patient care.
[2019-12-05] MEDS: FENTANYL-0.9 % NACL/PF 100 ML IV PRN (06:18)
--- NOTE | 2019-12-05 06:25 | NUR ---
Problems reprioritized. Patient report given, questions answered & plan of care reviewed with Tonja SUAZO.
[2019-12-05] MEDS: clobetasol 0.05% cream 30gm TP SCH ×2 (08:00→20:00)
[2019-12-05] MEDS: K, MAG and/or Phos replacement - Verify level? MC SCH (08:00)
[2019-12-05] MEDS: aspirin 81mg tab.chew NG SCH (09:17)
[2019-12-05] MEDS: clopidogrel 75mg tablet NG SCH (09:17)
[2019-12-05] MEDS: pantoprazole 40 MG vial IV SCH (09:17)
[2019-12-05] MEDS: atorvastatin 20mg tablet NG SCH (09:18)
[2019-12-05] MEDS: vitamin D (cholecalciferol) 1,000 unit tablet NG SCH (09:18)
[2019-12-05 09:48] LABS: HEMOGLOBIN 7.5 g/dl (12.0-16.0); LYMPHOCYTES # (AUTO) 1.4 X10'3 (1.1-4.8); MONOCYTES # (AUTO) 0.6 X10'3 (0-0.9)
[2019-12-05 09:50] LABS: BASOPHILS % (AUTO) 0.3 % (0-1); EOSINOPHILS # (AUTO) 0.1 X10'3 (0-0.9); EOSINOPHILS % (AUTO) 0.9 % (0-6); LYMPHOCYTES % (AUTO) 18.5 % (21-51); MEAN CORPUSCULAR HEMOGLOBIN 31.9 PG (27.0-31.0); MEAN CORPUSCULAR HGB CONC 34.6 g/dL (33.0-36.5); MEAN CORPUSCULAR VOLUME 92.4 FL (78-98); MEAN PLATELET VOLUME 9.1 FL (7.4-10.4); MONOCYTES % (AUTO) 7.7 % (2-12); NEUTROPHILS # (AUTO) 5.4 X10'3 (1.8-7.7); NEUTROPHILS % (AUTO) 72.6 % (42-75); PLATELET COUNT 146 X10'3 (140-440); RED BLOOD COUNT 2.34 X10'6 (4.20-5.60); RED CELL DISTRIBUTION WIDTH 13.9 % (11.5-14.5); WHITE BLOOD COUNT 7.4 X10'3 (4.5-11.0)
[2019-12-05 09:52] LABS: HEMATOCRIT 21.6 % (35.0-45.0)
[2019-12-05 09:56] LABS: ALBUMIN 1.7 G/DL (3.4-5.0); ANION GAP 10 (8-16); BLOOD UREA NITROGEN 41 MG/DL (7-18); BUN/CREATININE RATIO 29.1 (6.6-38.0); CALCIUM 6.5 MG/DL (8.5-10.1); CHLORIDE 106 MMOL/L (99-107); CREATININE 1.41 MG/DL (0.40-0.90); GLUCOSE 127 MG/DL (70-104); MAGNESIUM 1.7 MG/DL (1.5-2.4); PHOSPHORUS 3.1 MG/DL (2.3-4.5); POTASSIUM 4.2 MMOL/L (3.5-5.1); SODIUM 136 MMOL/L (135-145); TOTAL CARBON DIOXIDE 20.5 MMOL/L (24-32); eGFR 36 ML/MIN
--- NOTE | 2019-12-05 14:19 | NUR ---
Tube feed consult: Pt remains intubated. OG tube in place. TF recommendations below calculated to meet nutrient needs using IBW. Will continue to follow closely. Recommend: 1. Continuous TF via OG tube using Vital High Protein with goal rate of 70 mL/hr to provide: 1680 mL total volume/day, 1680 kcal, 147 g protein, and 1405 mL water 2. Additional water flush per MD. Current serum Na 136 (WNL) however appears to be on downward trend since admit 3. Prealbumin q Saturday and ; Daily weights 4. PO diet advancement to heart healthy as medically indicated following extubation Addendum: 12/05/19 at [address] Amended: Links added.
[2019-12-05] MEDS: insulin Lispro (HumaLOG) vial - multi-dose SQ SCH (15:27)
[2019-12-05] MEDS: heparin 10,000 units/1 ML INJ IV PRN (17:01)
--- NOTE | 2019-12-05 18:05 | NUR ---
Problems reprioritized. Patient report given, questions answered & plan of care reviewed with oncoming shift.
--- NOTE | 2019-12-05 19:22 | NUR ---
Patient in room ICU 2042. I have received report from day shift RN and had the opportunity to ask questions and assume patient care.
--- NOTE | 2019-12-05 20:21 | NUR ---
Patient's family at the bedside, pt opens eyes, looks towards voice. weakly squeezes hand to commands. Sedation off, pain medication at low dose. Herrera Perez notified. Will continue to monitor.
[2019-12-05] MEDS: docusate sodium 100mg/10ml UD cup NG SCH (21:43)
[2019-12-05] MEDS: insulin regular, human U-100 3ml vial - multi-dose SQ SCH (21:54)
[2019-12-05] MEDS: insulin glargine (Lantus) pen - multi-dose SQ SCH (21:55)
[2019-12-06] VITALS (26 sets, daily range): BP systolic 72–107; BP diastolic 33–58
[2019-12-06] MEDS: NORepinephrine 8 MG in NS 250ml IV soln IV SCH ×3 (01:04→20:55)
[2019-12-06] MEDS: midazolam 100mg in NS 100ml 100 ML IV PRN (01:05)
[2019-12-06] MEDS: mineral oil/petrolatum ophthal oint EACHEYE SCH ×4 (03:19→20:55)
[2019-12-06] MEDS: heparin 25,000 UNIT/250ml bag 250 ML IV SCH (03:27)
[2019-12-06] MEDS: amiodarone/D5 360MG/200ML BAG 200 ML IV SCH ×3 (03:27→19:00)
[2019-12-06 04:04] LABS: BASOPHILS % (AUTO) 0.3 % (0-1); HEMOGLOBIN 8.3 g/dl (12.0-16.0); WHITE BLOOD COUNT 5.7 X10'3 (4.5-11.0)
[2019-12-06] MEDS: insulin regular, human U-100 3ml vial - multi-dose SQ SCH ×4 (04:04→22:49)
[2019-12-06 04:06] LABS: EOSINOPHILS % (AUTO) 0.6 % (0-6); HEMATOCRIT 24.1 % (35.0-45.0); LYMPHOCYTES % (AUTO) 18.4 % (21-51); MEAN CORPUSCULAR HEMOGLOBIN 31.5 PG (27.0-31.0); MEAN CORPUSCULAR HGB CONC 34.5 g/dL (33.0-36.5); MEAN CORPUSCULAR VOLUME 91.1 FL (78-98); MEAN PLATELET VOLUME 9.3 FL (7.4-10.4); MONOCYTES # (AUTO) 0.4 X10'3 (0-0.9); MONOCYTES % (AUTO) 7.4 % (2-12); NEUTROPHILS # (AUTO) 4.1 X10'3 (1.8-7.7); NEUTROPHILS % (AUTO) 73.3 % (42-75); PLATELET COUNT 123 X10'3 (140-440); RED BLOOD COUNT 2.65 X10'6 (4.20-5.60); RED CELL DISTRIBUTION WIDTH 13.9 % (11.5-14.5)
[2019-12-06 04:22] LABS: ALANINE AMINOTRANSFERASE 204 U/L (12-78); ALBUMIN 1.7 G/DL (3.4-5.0); ALBUMIN/GLOBULIN RATIO 0.7 (1.1-1.5); ALKALINE PHOSPHATASE 92 IU/L (46-116); ANION GAP 7 (8-16); ASPARTATE AMINO TRANSFERASE 199 U/L (10-37); BILIRUBIN,TOTAL 0.5 MG/DL (0.1-1.0); BLOOD UREA NITROGEN 42 MG/DL (7-18); BUN/CREATININE RATIO 33.6 (6.6-38.0); CALCIUM 6.6 MG/DL (8.5-10.1); CHLORIDE 103 MMOL/L (99-107); CREATININE 1.25 MG/DL (0.40-0.90); GLUCOSE 127 MG/DL (70-104); MAGNESIUM 1.7 MG/DL (1.5-2.4); PHOSPHORUS 2.9 MG/DL (2.3-4.5); POTASSIUM 3.7 MMOL/L (3.5-5.1); SODIUM 133 MMOL/L (135-145); TOTAL PROTEIN 4.3 G/DL (6.4-8.2); eGFR 41 ML/MIN
[2019-12-06 04:35] LABS: ABG BASE EXCESS -2.7 mmol/L (-2.0-3.0); ABG HCO3 20.7 mmol/L (22.0-26.0); ABG OXYGEN SATURATION 93.7 % (95-98); ABG PCO2 (T) 30.7 mmHg (35.0-45.0); ABG PH (T) 7.447 (7.350-7.450); ABG PO2 (T) 68.3 mmHg (83-108); FMetHb 0.2 % (0.3-1.12); FO2Hb 93.5 % (94-100); PATIENT TEMPERATURE 37.1; PEEP 5 cm H2O; TIDAL VOLUME 475 mL; TOTAL HEMOGLOBIN 8.8 G/dl (12.0-16.0)
[2019-12-06] MEDS: FENTANYL-0.9 % NACL/PF 100 ML IV PRN (05:06)
[2019-12-06 05:13] LABS: RESPIRATORY RATE 18 b/min
[2019-12-06 05:14] LABS: RESPIRATORY RATE (OBSERVED) 18 b/min
--- NOTE | 2019-12-06 06:32 | NUR ---
Problems reprioritized. Patient report given, questions answered & plan of care reviewed with day shift RN.
[2019-12-06] MEDS: docusate sodium 100mg/10ml UD cup NG SCH ×2 (07:51→20:55)
[2019-12-06] MEDS: vitamin D (cholecalciferol) 1,000 unit tablet NG SCH (07:51)
[2019-12-06] MEDS: pantoprazole 40 MG vial IV SCH (07:51)
[2019-12-06] MEDS: aspirin 81mg tab.chew NG SCH (07:51)
[2019-12-06] MEDS: atorvastatin 20mg tablet NG SCH (07:51)
[2019-12-06] MEDS: clopidogrel 75mg tablet NG SCH (07:51)
[2019-12-06 10:06] LABS: ABG HCO3 18.8 mmol/L (22.0-26.0); ABG OXYGEN SATURATION 89.2 % (95-98); ABG PCO2 (T) 29.9 mmHg (35.0-45.0); ABG PH (T) 7.416 (7.350-7.450); ABG PO2 (T) 59.3 mmHg (83-108); FCOHb 0.3 % (0.5-1.5); FMetHb 0.1 % (0.3-1.12); FO2Hb 88.8 % (94-100); PEEP 5 cm H2O; RESPIRATORY RATE 14 b/min; TIDAL VOLUME 475 mL; TOTAL HEMOGLOBIN 8.7 G/dl (12.0-16.0)
[2019-12-06] MEDS: DOBUTamine-DoBUTrex 500mg/D5W 250 ML IV PRN (10:25)
[2019-12-06] MEDS: heparin 10,000 units/1 ML INJ IV PRN (10:48)
[2019-12-06] MEDS: normal saline 1000ml 1,000 ML IV SCH (10:54)
--- NOTE | 2019-12-06 18:10 | NUR ---
Patient in room ICU 2042. I have received report from RUMA SUAZO and had the opportunity to ask questions and assume patient care.
[2019-12-06] MEDS: clobetasol 0.05% cream 30gm TP SCH (20:00)
[2019-12-06] MEDS: insulin glargine (Lantus) pen - multi-dose SQ SCH (22:45)
[2019-12-07] VITALS (23 sets, daily range): BP systolic 89–121; BP diastolic 35–61
[2019-12-07] MEDS: K, MAG and/or Phos replacement - Verify level? MC SCH ×2 (00:06→08:00)
[2019-12-07] MEDS: clobetasol 0.05% cream 30gm TP SCH ×3 (00:07→20:14)
[2019-12-07] MEDS: sodium bicarbonate (8.4%) inj. 100 MEQ in dextrose 5%-water 1,000 ML IV SCH ×3 (00:08→15:35)
[2019-12-07] MEDS: heparin 10,000 units/1 ML INJ IV PRN ×2 (00:21→20:19)
[2019-12-07] MEDS: amiodarone/D5 360MG/200ML BAG 200 ML IV SCH (02:13)
[2019-12-07] MEDS: mineral oil/petrolatum ophthal oint EACHEYE SCH ×4 (02:22→20:15)
[2019-12-07] MEDS: insulin regular, human U-100 3ml vial - multi-dose SQ SCH ×3 (02:31→22:27)
[2019-12-07 03:11] LABS: HEMOGLOBIN 7.6 g/dl (12.0-16.0); LYMPHOCYTES # (AUTO) 1.1 X10'3 (1.1-4.8); MONOCYTES # (AUTO) 0.7 X10'3 (0-0.9); NEUTROPHILS # (AUTO) 3.3 X10'3 (1.8-7.7); RED BLOOD COUNT 2.44 X10'6 (4.20-5.60); WHITE BLOOD COUNT 5.3 X10'3 (4.5-11.0)
[2019-12-07 03:13] LABS: ALANINE AMINOTRANSFERASE 144 U/L (12-78); ALBUMIN 1.6 G/DL (3.4-5.0); ALBUMIN/GLOBULIN RATIO 0.6 (1.1-1.5); ALKALINE PHOSPHATASE 110 IU/L (46-116); ANION GAP 5 (8-16); ASPARTATE AMINO TRANSFERASE 123 U/L (10-37); BASOPHILS % (AUTO) 0.3 % (0-1); BILIRUBIN,TOTAL 0.5 MG/DL (0.1-1.0); BLOOD UREA NITROGEN 41 MG/DL (7-18); CALCIUM 6.7 MG/DL (8.5-10.1); CHLORIDE 100 MMOL/L (99-107); CREATININE 1.05 MG/DL (0.40-0.90); EOSINOPHILS # (AUTO) 0.2 X10'3 (0-0.9); EOSINOPHILS % (AUTO) 2.9 % (0-6); GLUCOSE 116 MG/DL (70-104); HEMATOCRIT 22.1 % (35.0-45.0); LYMPHOCYTES % (AUTO) 20.9 % (21-51); MAGNESIUM 1.7 MG/DL (1.5-2.4); MEAN CORPUSCULAR HEMOGLOBIN 31.2 PG (27.0-31.0); MEAN CORPUSCULAR HGB CONC 34.5 g/dL (33.0-36.5); MEAN CORPUSCULAR VOLUME 90.6 FL (78-98); MEAN PLATELET VOLUME 9.7 FL (7.4-10.4); MONOCYTES % (AUTO) 13.3 % (2-12); NEUTROPHILS % (AUTO) 62.6 % (42-75); PHOSPHORUS 2.6 MG/DL (2.3-4.5); PLATELET COUNT 122 X10'3 (140-440); POTASSIUM 3.3 MMOL/L (3.5-5.1); RED CELL DISTRIBUTION WIDTH 14.2 % (11.5-14.5); SODIUM 132 MMOL/L (135-145); TOTAL CARBON DIOXIDE 26.7 MMOL/L (24-32); TOTAL PROTEIN 4.4 G/DL (6.4-8.2); eGFR 51 ML/MIN
[2019-12-07] MEDS: potassium Cl 20mEq/100mL bag 100 ML IV PRN ×2 (04:39→05:55)
[2019-12-07 04:50] LABS: ABG BASE EXCESS -0.4 mmol/L (-2.0-3.0); ABG HCO3 23.2 mmol/L (22.0-26.0); ABG OXYGEN SATURATION 91.7 % (95-98); ABG PCO2 (T) 33.2 mmHg (35.0-45.0); ABG PH (T) 7.461 (7.350-7.450); ABG PO2 (T) 62.4 mmHg (83-108); FCOHb 0.1 % (0.5-1.5); FMetHb 0.1 % (0.3-1.12); FO2Hb 91.5 % (94-100); PATIENT TEMPERATURE 37.1; PEEP 8 cm H2O; RESPIRATORY RATE 18 b/min; TIDAL VOLUME 475 mL; TOTAL HEMOGLOBIN 8.1 G/dl (12.0-16.0)
--- NOTE | 2019-12-07 06:36 | NUR ---
Problems reprioritized. Patient report given, questions answered & plan of care reviewed with RUMA SUAZO.
[2019-12-07] MEDS: NORepinephrine 8 MG in NS 250ml IV soln IV SCH (06:53)
[2019-12-07] MEDS: docusate sodium 100mg/10ml UD cup NG SCH ×2 (07:49→20:13)
[2019-12-07] MEDS: clopidogrel 75mg tablet NG SCH (07:49)
[2019-12-07] MEDS: aspirin 81mg tab.chew NG SCH (07:50)
[2019-12-07] MEDS: vitamin D (cholecalciferol) 1,000 unit tablet NG SCH (07:50)
[2019-12-07] MEDS: pantoprazole 40 MG vial IV SCH (07:50)
[2019-12-07] MEDS: atorvastatin 20mg tablet NG SCH (07:50)
[2019-12-07 10:04] LABS: LARGE PLATELETS FEW; PLATELET ESTIMATE DECREASED
[2019-12-07 10:05] LABS: ANISOCYTOSIS 1+; MICROCYTOSIS 1+
[2019-12-07 11:01] LABS: ISTAT Hct MIX 35 %PCV (35-48); ISTAT O2 SATURATION MIX VENOUS 88 % (60-80); ISTAT SOURCE BLNK
[2019-12-07 11:01] LABS: ISTAT Hct MIX 34 %PCV (35-48); ISTAT O2 SATURATION MIX VENOUS 57 % (60-80); ISTAT SOURCE BLNK
[2019-12-07] MEDS ORDERED: DOBUTamine-DoBUTrex 500mg/D5W 250 ML IV PRN (11:20)
[2019-12-07] MEDS ORDERED: amiodarone/D5 360MG/200ML BAG 200 ML IV SCH (11:20)
[2019-12-07] MEDS: heparin 25,000 UNIT/250ml bag 250 ML IV SCH (11:21)
--- NOTE | 2019-12-07 11:47 | NUR ---
Reassessment: Pt tolerating EN at goal; GRV WNL. LBM 3/5 receiving routine colace; relistor started today since receiving fentanyl and midazolam per MD. Na 132 w/ no free water flush. Pt current BMI inaccurate wt sudden change to 126in; BMI 31. Will continue to monitor. Recommend: 1. Continuous TF via OG tube using Vital High Protein with goal rate of 70 mL/hr to provide: 1680 mL total volume/day, 1680 kcal, 147 g protein, and 1405 mL water 2. Additional water flush per MD. Current serum Na 132 3. Prealbumin q Saturday and ; Daily weights 4. PO diet advancement to regular as medically indicated following extubation Addendum: 12/07/19 at [address] Amended: Links added.
[2019-12-07] MEDS: vasopressin inj. 40 UNIT in normal saline 50ml IV soln 38 ML IV SCH (12:05)
--- NOTE | 2019-12-07 12:57 | NUR ---
Dietary called for Vital HP. Patient currently out. Awaiting del
[2019-12-07] MEDS: FENTANYL-0.9 % NACL/PF 100 ML IV PRN (16:03)
[2019-12-07 19:41] LABS: ABG BASE EXCESS 3.1 mmol/L (-2.0-3.0); ABG HCO3 27.1 mmol/L (22.0-26.0); ABG OXYGEN SATURATION 89.7 % (95-98); ABG PCO2 (T) 38.6 mmHg (35.0-45.0); ABG PH (T) 7.464 (7.350-7.450); ABG PO2 (T) 56.3 mmHg (83-108); FCOHb 0.3 % (0.5-1.5); FMetHb 0.3 % (0.3-1.12); FO2Hb 89.2 % (94-100); PATIENT TEMPERATURE 37.1; PEEP 8 cm H2O; RESPIRATORY RATE 16 b/min; TIDAL VOLUME 475 mL; TOTAL HEMOGLOBIN 7.5 G/dl (12.0-16.0)
[2019-12-07 20:10] LABS: BASOPHILS % (AUTO) 0.2 % (0-1); EOSINOPHILS # (AUTO) 0.1 X10'3 (0-0.9); EOSINOPHILS % (AUTO) 2.2 % (0-6); HEMOGLOBIN 7.3 g/dl (12.0-16.0); LYMPHOCYTES # (AUTO) 0.9 X10'3 (1.1-4.8); LYMPHOCYTES % (AUTO) 16.3 % (21-51); MEAN CORPUSCULAR HEMOGLOBIN 31.8 PG (27.0-31.0); MEAN CORPUSCULAR HGB CONC 34.7 g/dL (33.0-36.5); MEAN CORPUSCULAR VOLUME 91.8 FL (78-98); MEAN PLATELET VOLUME 9.6 FL (7.4-10.4); MONOCYTES # (AUTO) 0.8 X10'3 (0-0.9); MONOCYTES % (AUTO) 13.4 % (2-12); NEUTROPHILS # (AUTO) 3.9 X10'3 (1.8-7.7); NEUTROPHILS % (AUTO) 67.9 % (42-75); PLATELET COUNT 119 X10'3 (140-440); RED CELL DISTRIBUTION WIDTH 14.4 % (11.5-14.5); WHITE BLOOD COUNT 5.7 X10'3 (4.5-11.0)
[2019-12-07 20:19] LABS: HEMATOCRIT 21.1 % (35.0-45.0)
--- NOTE | 2019-12-07 20:26 | NUR ---
amiodarone stopped by verbal order of September.
[2019-12-07 20:28] LABS: ALANINE AMINOTRANSFERASE 118 U/L (12-78); ALBUMIN 1.6 G/DL (3.4-5.0); ALBUMIN/GLOBULIN RATIO 0.5 (1.1-1.5); ALKALINE PHOSPHATASE 122 IU/L (46-116); ANION GAP 4 (8-16); ASPARTATE AMINO TRANSFERASE 93 U/L (10-37); BILIRUBIN,TOTAL 0.6 MG/DL (0.1-1.0); BLOOD UREA NITROGEN 45 MG/DL (7-18); BUN/CREATININE RATIO 46.9 (6.6-38.0); CALCIUM 6.4 MG/DL (8.5-10.1); CHLORIDE 99 MMOL/L (99-107); CREATININE 0.96 MG/DL (0.40-0.90); GLUCOSE 131 MG/DL (70-104); POTASSIUM 3.7 MMOL/L (3.5-5.1); SODIUM 131 MMOL/L (135-145); TOTAL CARBON DIOXIDE 28.2 MMOL/L (24-32); TOTAL PROTEIN 4.6 G/DL (6.4-8.2); eGFR 56 ML/MIN
[2019-12-07] MEDS: insulin glargine (Lantus) pen - multi-dose SQ SCH (22:23)
[2019-12-07] MEDS: ipratropium/albuterol 3ml nebule NEB SCH (22:57)
[2019-12-08] VITALS (31 sets, daily range): BP systolic 93–118; BP diastolic 45–66
[2019-12-08] MEDS ORDERED: metoclopramide 5 mg/ml inj IV ONE (00:20)
[2019-12-08] MEDS: Dextrose 10%-water IV solution 1,000 ML IV SCH ×2 (02:00→18:05)
[2019-12-08] MEDS: normal saline 1000ml 1,000 ML IV SCH (02:35)
[2019-12-08] MEDS: ipratropium/albuterol 3ml nebule NEB SCH ×6 (02:45→22:52)
[2019-12-08] MEDS: mineral oil/petrolatum ophthal oint EACHEYE SCH ×4 (02:57→19:35)
[2019-12-08 03:26] LABS: ABG BASE EXCESS 2.4 mmol/L (-2.0-3.0); ABG HCO3 25.8 mmol/L (22.0-26.0); ABG OXYGEN SATURATION 94.6 % (95-98); ABG PCO2 (T) 34.2 mmHg (35.0-45.0); ABG PH (T) 7.494 (7.350-7.450); ABG PO2 (T) 69.8 mmHg (83-108); FCOHb 0.5 % (0.5-1.5); FMetHb 0.2 % (0.3-1.12); FO2Hb 93.9 % (94-100); PATIENT TEMPERATURE 36.7; PEEP 10 cm H2O; RESPIRATORY RATE 16 b/min; TIDAL VOLUME 475 mL; TOTAL HEMOGLOBIN 7.7 G/dl (12.0-16.0)
[2019-12-08 03:44] LABS: ALANINE AMINOTRANSFERASE 109 U/L (12-78); ALBUMIN 1.6 G/DL (3.4-5.0); ALBUMIN/GLOBULIN RATIO 0.5 (1.1-1.5); ALKALINE PHOSPHATASE 126 IU/L (46-116); ANION GAP 4 (8-16); ASPARTATE AMINO TRANSFERASE 81 U/L (10-37); BILIRUBIN,TOTAL 0.6 MG/DL (0.1-1.0); BLOOD UREA NITROGEN 44 MG/DL (7-18); BUN/CREATININE RATIO 51.2 (6.6-38.0); CALCIUM 6.7 MG/DL (8.5-10.1); CHLORIDE 98 MMOL/L (99-107); CREATININE 0.86 MG/DL (0.40-0.90); GLUCOSE 100 MG/DL (70-104); MAGNESIUM 1.7 MG/DL (1.5-2.4); PHOSPHORUS 2.4 MG/DL (2.3-4.5); POTASSIUM 3.6 MMOL/L (3.5-5.1); SODIUM 132 MMOL/L (135-145); TOTAL CARBON DIOXIDE 29.7 MMOL/L (24-32); TOTAL PROTEIN 4.7 G/DL (6.4-8.2); eGFR 64 ML/MIN
[2019-12-08] MEDS: NORepinephrine 8 MG in NS 250ml IV soln IV SCH ×3 (05:47→17:38)
[2019-12-08] MEDS: sodium bicarbonate (8.4%) inj. 100 MEQ in dextrose 5%-water 1,000 ML IV SCH (05:47)
--- NOTE | 2019-12-08 06:15 | NUR ---
Patient in room ICU 2042. I have received report from shift stacker and had the opportunity to ask questions and assume patient care.
[2019-12-08] MEDS: docusate sodium 100mg/10ml UD cup NG SCH ×2 (07:46→19:22)
[2019-12-08] MEDS: aspirin 81mg tab.chew NG SCH (07:46)
[2019-12-08] MEDS: atorvastatin 20mg tablet NG SCH (07:46)
[2019-12-08] MEDS: piperacillin/tazo 4.5gm/100ml 100 ML IV SCH ×2 (07:46→21:40)
[2019-12-08] MEDS: linezolid 600mg/300ml PREMIX 300 ML IV SCH ×2 (07:46→19:22)
[2019-12-08] MEDS: pantoprazole 40 MG vial IV SCH (07:46)
[2019-12-08] MEDS: clopidogrel 75mg tablet NG SCH (07:46)
[2019-12-08] MEDS: vitamin D (cholecalciferol) 1,000 unit tablet NG SCH (07:46)
[2019-12-08] MEDS: clobetasol 0.05% cream 30gm TP SCH ×2 (07:52→19:35)
[2019-12-08] MEDS: K, MAG and/or Phos replacement - Verify level? MC SCH (08:00)
[2019-12-08] MEDS ORDERED: LIDOcaine 1% (10mg/ml)w/preservative injection 20ml MDV ONE (08:37)
[2019-12-08] MEDS ORDERED: furosemide 40mg/4ml inj IV ONE (11:15)
--- NOTE | 2019-12-08 11:22 | NUR ---
zyvox consult: Pt started on zyvox; will need ed once stable and appropriate following extubation. Deferred at this time. Addendum: 12/08/19 at [address] Amended: Links added.
[2019-12-08] MEDS: heparin 25,000 UNIT/250ml bag 250 ML IV SCH ×2 (12:21→17:43)
[2019-12-08] MEDS: midazolam 100mg in NS 100ml 100 ML IV PRN (17:33)
--- NOTE | 2019-12-08 18:24 | NUR ---
Problems reprioritized. Patient report given, questions answered & plan of care reviewed with oncoming shift.
--- NOTE | 2019-12-08 19:05 | NUR ---
183..Patient in room ICU 2042. I have received report from Fabi SUAZO and had the opportunity to ask questions and assume patient care.
[2019-12-08] MEDS: lactobacillus rhamnosus 10,000 MMU CELLS/CAPSULE NG SCH (19:22)
[2019-12-08] MEDS: insulin glargine (Lantus) pen - multi-dose SQ SCH (21:00)
--- NOTE | 2019-12-08 22:19 | NUR ---
1999..Assessment as noted, family at bedside, update given. pt lightly sedated, attempts to follow commands.
--- NOTE | 2019-12-08 23:29 | NUR ---
2300..Incontinent large amount stool, repeat bath and linen change given, weaning levophed as tolerated.
[2019-12-09] VITALS (25 sets, daily range): BP systolic 84–147; BP diastolic 40–104
--- NOTE | 2019-12-09 01:49 | NUR ---
0000..No changes noted.
[2019-12-09] MEDS: mineral oil/petrolatum ophthal oint EACHEYE SCH ×4 (02:00→20:29)
[2019-12-09 02:24] LABS: BASOPHILS % (AUTO) 0.4 % (0-1); EOSINOPHILS # (AUTO) 0.2 X10'3 (0-0.9); EOSINOPHILS % (AUTO) 2.7 % (0-6); HEMATOCRIT 23.3 % (35.0-45.0); HEMOGLOBIN 8.2 g/dl (12.0-16.0); LYMPHOCYTES # (AUTO) 0.8 X10'3 (1.1-4.8); LYMPHOCYTES % (AUTO) 14.2 % (21-51); MEAN CORPUSCULAR HEMOGLOBIN 31.3 PG (27.0-31.0); MEAN CORPUSCULAR HGB CONC 35.1 g/dL (33.0-36.5); MEAN CORPUSCULAR VOLUME 89.3 FL (78-98); MEAN PLATELET VOLUME 9.1 FL (7.4-10.4); MONOCYTES # (AUTO) 0.7 X10'3 (0-0.9); MONOCYTES % (AUTO) 11.4 % (2-12); NEUTROPHILS # (AUTO) 4.2 X10'3 (1.8-7.7); NEUTROPHILS % (AUTO) 71.3 % (42-75); PLATELET COUNT 123 X10'3 (140-440); RED BLOOD COUNT 2.61 X10'6 (4.20-5.60); RED CELL DISTRIBUTION WIDTH 15.1 % (11.5-14.5); WHITE BLOOD COUNT 5.9 X10'3 (4.5-11.0)
[2019-12-09] MEDS: ipratropium/albuterol 3ml nebule NEB SCH ×6 (02:31→23:29)
[2019-12-09 02:34] LABS: ALANINE AMINOTRANSFERASE 75 U/L (12-78); ALBUMIN 1.5 G/DL (3.4-5.0); ALBUMIN/GLOBULIN RATIO 0.4 (1.1-1.5); ALKALINE PHOSPHATASE 164 IU/L (46-116); ANION GAP 4 (8-16); ASPARTATE AMINO TRANSFERASE 51 U/L (10-37); BILIRUBIN,TOTAL 1.2 MG/DL (0.1-1.0); BLOOD UREA NITROGEN 32 MG/DL (7-18); BUN/CREATININE RATIO 33.7 (6.6-38.0); CALCIUM 7.2 MG/DL (8.5-10.1); CHLORIDE 95 MMOL/L (99-107); CREATININE 0.95 MG/DL (0.40-0.90); GLUCOSE 109 MG/DL (70-104); MAGNESIUM 1.5 MG/DL (1.5-2.4); PHOSPHORUS 2.8 MG/DL (2.3-4.5); POTASSIUM 3.3 MMOL/L (3.5-5.1); SODIUM 130 MMOL/L (135-145); TOTAL CARBON DIOXIDE 31.2 MMOL/L (24-32); TOTAL PROTEIN 4.9 G/DL (6.4-8.2); eGFR 57 ML/MIN
[2019-12-09] MEDS: potassium Cl 20mEq/100mL bag 100 ML IV PRN ×3 (03:14→23:30)
[2019-12-09 03:21] LABS: ABG BASE EXCESS 3.7 mmol/L (-2.0-3.0); ABG HCO3 26.6 mmol/L (22.0-26.0); ABG OXYGEN SATURATION 95.3 % (95-98); ABG PCO2 (T) 33.2 mmHg (35.0-45.0); ABG PH (T) 7.521 (7.350-7.450); ABG PO2 (T) 74.1 mmHg (83-108); ALLEN'S TEST POSITIVE; FCOHb 0.3 % (0.5-1.5); PEEP 10 cm H2O; RESPIRATORY RATE 16 b/min; TIDAL VOLUME 475 mL; TOTAL HEMOGLOBIN 8.6 G/dl (12.0-16.0)
--- NOTE | 2019-12-09 05:25 | NUR ---
0400..No changes noted, continuing to wean levophed as tolerated.
--- NOTE | 2019-12-09 06:09 | NUR ---
0610..Problems reprioritized. Patient report given, questions answered & plan of care reviewed with Fabi SUAZO.
--- NOTE | 2019-12-09 06:15 | NUR ---
Patient in room ICU 2042. I have received report from shift manager and had the opportunity to ask questions and assume patient care.
[2019-12-09] MEDS: atorvastatin 20mg tablet NG SCH (07:22)
[2019-12-09] MEDS: vitamin D (cholecalciferol) 1,000 unit tablet NG SCH (07:22)
[2019-12-09] MEDS: pantoprazole 40 MG vial IV SCH (07:22)
[2019-12-09] MEDS: clopidogrel 75mg tablet NG SCH (07:22)
[2019-12-09] MEDS: lactobacillus rhamnosus 10,000 MMU CELLS/CAPSULE NG SCH ×2 (07:22→20:29)
[2019-12-09] MEDS: aspirin 81mg tab.chew NG SCH (07:23)
[2019-12-09] MEDS: docusate sodium 100mg/10ml UD cup NG SCH ×2 (07:23→20:29)
[2019-12-09] MEDS: linezolid 600mg/300ml PREMIX 300 ML IV SCH ×2 (07:23→19:37)
[2019-12-09] MEDS: clobetasol 0.05% cream 30gm TP SCH ×2 (07:29→20:29)
[2019-12-09] MEDS ORDERED: furosemide 20 MG/2 ML vial IV ONE (08:25)
[2019-12-09] MEDS: heparin 10,000 units/1 ML INJ IV PRN (08:42)
[2019-12-09] MEDS: piperacillin/tazo 4.5gm/100ml 100 ML IV SCH ×2 (08:45→20:29)
[2019-12-09] MEDS: K, MAG and/or Phos replacement - Verify level? MC SCH (08:46)
[2019-12-09] MEDS: furosemide 20 MG/2 ML vial IV SCH ×2 (15:28→20:29)
[2019-12-09] MEDS: Dextrose 10%-water IV solution 1,000 ML IV SCH (16:37)
--- NOTE | 2019-12-09 18:03 | NUR ---
Problems reprioritized. Patient report given, questions answered & plan of care reviewed with oncoming shift.
[2019-12-09] MEDS: apixaban 5mg tablet PO SCH (20:29)
[2019-12-09] MEDS: digoxin 250mcg/ml 2ml ampule IV SCH (20:30)
[2019-12-09] MEDS: insulin glargine (Lantus) pen - multi-dose SQ SCH (20:31)
[2019-12-09] MEDS: midazolam 100mg in NS 100ml 100 ML IV PRN (21:32)
[2019-12-10] VITALS (28 sets, daily range): BP systolic 77–115; BP diastolic 48–67
[2019-12-10] MEDS: furosemide 20 MG/2 ML vial IV SCH ×4 (02:22→20:05)
[2019-12-10] MEDS: mineral oil/petrolatum ophthal oint EACHEYE SCH ×4 (02:22→20:04)
[2019-12-10] MEDS: ipratropium/albuterol 3ml nebule NEB SCH ×6 (03:26→22:43)
[2019-12-10 03:46] LABS: ABG HCO3 26.5 mmol/L (22.0-26.0); ABG OXYGEN SATURATION 96.6 % (95-98); ABG PCO2 (T) 31.9 mmHg (35.0-45.0); ABG PO2 (T) 85.7 mmHg (83-108); ALLEN'S TEST POSITIVE; FCOHb 0.3 % (0.5-1.5); FMetHb 0.2 % (0.3-1.12); FO2Hb 96.1 % (94-100); PATIENT TEMPERATURE 37.4; PEEP 8 cm H2O; RESPIRATORY RATE 16 b/min; TIDAL VOLUME 475 mL; TOTAL HEMOGLOBIN 8.1 G/dl (12.0-16.0)
[2019-12-10 03:55] LABS: BASOPHILS % (AUTO) 0.2 % (0-1); EOSINOPHILS # (AUTO) 0.1 X10'3 (0-0.9); EOSINOPHILS % (AUTO) 1.8 % (0-6); HEMOGLOBIN 7.7 g/dl (12.0-16.0); LYMPHOCYTES % (AUTO) 13.9 % (21-51); MEAN CORPUSCULAR HEMOGLOBIN 31.3 PG (27.0-31.0); MEAN CORPUSCULAR HGB CONC 34.8 g/dL (33.0-36.5); MEAN PLATELET VOLUME 9.2 FL (7.4-10.4); MONOCYTES # (AUTO) 0.6 X10'3 (0-0.9); NEUTROPHILS # (AUTO) 5.2 X10'3 (1.8-7.7); NEUTROPHILS % (AUTO) 75.1 % (42-75); PLATELET COUNT 141 X10'3 (140-440); RED BLOOD COUNT 2.45 X10'6 (4.20-5.60); RED CELL DISTRIBUTION WIDTH 15.3 % (11.5-14.5)
[2019-12-10 04:11] LABS: ALANINE AMINOTRANSFERASE 69 U/L (12-78); ALBUMIN 1.4 G/DL (3.4-5.0); ALBUMIN/GLOBULIN RATIO 0.4 (1.1-1.5); ALKALINE PHOSPHATASE 378 IU/L (46-116); ANION GAP 4 (8-16); ASPARTATE AMINO TRANSFERASE 61 U/L (10-37); BILIRUBIN,TOTAL 1.3 MG/DL (0.1-1.0); BLOOD UREA NITROGEN 35 MG/DL (7-18); BUN/CREATININE RATIO 34.7 (6.6-38.0); CALCIUM 7.4 MG/DL (8.5-10.1); CHLORIDE 96 MMOL/L (99-107); CREATININE 1.01 MG/DL (0.40-0.90); GLUCOSE 94 MG/DL (70-104); MAGNESIUM 1.5 MG/DL (1.5-2.4); PREALBUMIN 7.4 MG/DL (19-36); SODIUM 130 MMOL/L (135-145); TOTAL CARBON DIOXIDE 30.5 MMOL/L (24-32); TOTAL PROTEIN 4.9 G/DL (6.4-8.2); eGFR 53 ML/MIN
--- NOTE | 2019-12-10 04:30 | NUR ---
Received critical HCT of 22.0, DRAFTER REFRIGERATION Ana notified and orders received for 1 unit of PRBC's. Will continue to monitor.
--- NOTE | 2019-12-10 06:42 | NUR ---
Problems reprioritized. Patient report given, questions answered & plan of care reviewed with Abdelrahman SUAZO.
[2019-12-10] MEDS: K, MAG and/or Phos replacement - Verify level? MC SCH (08:00)
[2019-12-10] MEDS: piperacillin/tazo 4.5gm/100ml 100 ML IV SCH (09:05)
[2019-12-10] MEDS: pantoprazole 40 MG vial IV SCH (09:05)
[2019-12-10] MEDS: linezolid 600mg/300ml PREMIX 300 ML IV SCH (09:06)
[2019-12-10] MEDS: docusate sodium 100mg/10ml UD cup NG SCH ×3 (09:21→20:05)
[2019-12-10] MEDS: apixaban 5mg tablet PO SCH (09:22)
[2019-12-10] MEDS: atorvastatin 20mg tablet NG SCH (09:22)
[2019-12-10] MEDS: clopidogrel 75mg tablet NG SCH (09:22)
[2019-12-10] MEDS: digoxin 250mcg/ml 2ml ampule IV SCH ×2 (09:22→20:06)
[2019-12-10] MEDS: aspirin 81mg tab.chew NG SCH (09:22)
[2019-12-10] MEDS: lactobacillus rhamnosus 10,000 MMU CELLS/CAPSULE NG SCH ×2 (09:22→20:05)
[2019-12-10] MEDS: vitamin D (cholecalciferol) 1,000 unit tablet NG SCH (09:22)
[2019-12-10] MEDS ORDERED: amiodarone 200mg tablet PO ONE (09:30)
[2019-12-10] MEDS: clobetasol 0.05% cream 30gm TP SCH ×2 (10:09→20:05)
--- NOTE | 2019-12-10 11:55 | NUR ---
Reassessment: Pt tolerating EN at goal; GRV WNL. LBM 12/08. S/p thoracentesis -1200ml L and -500ml R side removal per RN. Latest PALB down to 7.4 though TF held majority of one day s/p aspiration event when pt laid flat for sheath placement. Will continue to monitor for additional protein needs pending PALB trends w/ EN remaining at goal. Recommend: 1. Continuous TF via OG tube using Vital High Protein with goal rate of 70 mL/hr to provide: 1680 mL total volume/day, 1680 kcal, 147 g protein, and 1405 mL water 2. Additional water flush per MD. Current serum Na 132 3. Prealbumin q Saturday and ; Daily weights 4. PO diet advancement to regular as medically indicated following extubation Addendum: 12/10/19 at [address] Amended: Links added.
[2019-12-10] MEDS: Dextrose 10%-water IV solution 1,000 ML IV SCH (13:00)
[2019-12-10 13:08] LABS: HEMOGLOBIN 8.5 g/dl (12.0-16.0); MEAN CORPUSCULAR HEMOGLOBIN 30.9 PG (27.0-31.0); MEAN CORPUSCULAR VOLUME 90.8 FL (78-98); MEAN PLATELET VOLUME 8.8 FL (7.4-10.4); PLATELET COUNT 146 X10'3 (140-440); RED BLOOD COUNT 2.76 X10'6 (4.20-5.60); RED CELL DISTRIBUTION WIDTH 15.1 % (11.5-14.5); WHITE BLOOD COUNT 7.2 X10'3 (4.5-11.0)
[2019-12-10] MEDS ORDERED: ceFAZolin 1GM/D5W- ADD-VANTAGE 50 ML IV SCH (16:00)
--- NOTE | 2019-12-10 16:00 | NUR ---
Patient with decreased blood pressure with MAP between 55-60 and SBP in the 80/90s. 1Albumin administered with improvement of MAP >65. Dr. Dangelo called and notified. Will hold beta lucio. Addendum: 12/10/19 at 1740 by Abdelrahman Montalvo RN Disregard note: wrong patient.
[2019-12-10] MEDS: ceFAZolin/D5W- 1GM premix 50 ML IV SCH (16:26)
--- NOTE | 2019-12-10 18:40 | NUR ---
Patient in room ICU 2042. I have received report from Abdelrahman SUAZO, and had the opportunity to ask questions and assume patient care.
--- NOTE | 2019-12-10 18:42 | NUR ---
Problems reprioritized. Patient report given, questions answered & plan of care reviewed with Katarina SUAZO.
[2019-12-10] MEDS ORDERED: amiodarone 200mg tablet NG SCH (20:00)
[2019-12-10] MEDS: apixaban 5mg tablet NG SCH (20:06)
[2019-12-10] MEDS: insulin glargine (Lantus) pen - multi-dose SQ SCH (20:07)
[2019-12-10] MEDS: NORepinephrine 8 MG in NS 250ml IV soln IV SCH (22:32)
[2019-12-10 23:34] LABS: OCCULT BLOOD STOOL POSITIVE (Neg)
[2019-12-11] VITALS (21 sets, daily range): BP systolic 95–133; BP diastolic 46–73
[2019-12-11] MEDS: ceFAZolin/D5W- 1GM premix 50 ML IV SCH ×3 (00:14→16:00)
[2019-12-11] MEDS: furosemide 20 MG/2 ML vial IV SCH ×4 (02:20→21:07)
[2019-12-11] MEDS: mineral oil/petrolatum ophthal oint EACHEYE SCH ×4 (02:20→21:14)
[2019-12-11 03:10] LABS: BASOPHILS % (AUTO) 0.1 % (0-1); EOSINOPHILS # (AUTO) 0.1 X10'3 (0-0.9); EOSINOPHILS % (AUTO) 1.4 % (0-6); HEMATOCRIT 24.8 % (35.0-45.0); HEMOGLOBIN 8.5 g/dl (12.0-16.0); LYMPHOCYTES # (AUTO) 1.1 X10'3 (1.1-4.8); LYMPHOCYTES % (AUTO) 12.6 % (21-51); MEAN CORPUSCULAR HEMOGLOBIN 31.3 PG (27.0-31.0); MEAN CORPUSCULAR HGB CONC 34.3 g/dL (33.0-36.5); MEAN CORPUSCULAR VOLUME 91.2 FL (78-98); MEAN PLATELET VOLUME 8.9 FL (7.4-10.4); MONOCYTES # (AUTO) 0.7 X10'3 (0-0.9); MONOCYTES % (AUTO) 8.7 % (2-12); NEUTROPHILS # (AUTO) 6.5 X10'3 (1.8-7.7); NEUTROPHILS % (AUTO) 77.2 % (42-75); PLATELET COUNT 170 X10'3 (140-440); RED BLOOD COUNT 2.73 X10'6 (4.20-5.60); WHITE BLOOD COUNT 8.4 X10'3 (4.5-11.0)
[2019-12-11] MEDS: ipratropium/albuterol 3ml nebule NEB SCH ×6 (03:11→23:33)
[2019-12-11 03:18] LABS: ALANINE AMINOTRANSFERASE 75 U/L (12-78); ALBUMIN 1.4 G/DL (3.4-5.0); ALBUMIN/GLOBULIN RATIO 0.4 (1.1-1.5); ALKALINE PHOSPHATASE 471 IU/L (46-116); ANION GAP 4 (8-16); ASPARTATE AMINO TRANSFERASE 75 U/L (10-37); BLOOD UREA NITROGEN 39 MG/DL (7-18); CALCIUM 7.4 MG/DL (8.5-10.1); CHLORIDE 98 MMOL/L (99-107); GLUCOSE 95 MG/DL (70-104); MAGNESIUM 1.4 MG/DL (1.5-2.4); PHOSPHORUS 3.6 MG/DL (2.3-4.5); POTASSIUM 3.5 MMOL/L (3.5-5.1); SODIUM 134 MMOL/L (135-145); TOTAL CARBON DIOXIDE 32.5 MMOL/L (24-32); TOTAL PROTEIN 5.1 G/DL (6.4-8.2); eGFR 53 ML/MIN
[2019-12-11 03:30] LABS: ABG BASE EXCESS 5.4 mmol/L (-2.0-3.0); ABG HCO3 27.9 mmol/L (22.0-26.0); ABG OXYGEN SATURATION 96.7 % (95-98); ABG PCO2 (T) 34.3 mmHg (35.0-45.0); ABG PH (T) 7.532 (7.350-7.450); ABG PO2 (T) 95.2 mmHg (83-108); ALLEN'S TEST POSITIVE; FMetHb 0.3 % (0.3-1.12); FO2Hb 96.4 % (94-100); PEEP 5 cm H2O; RESPIRATORY RATE 12 b/min; TIDAL VOLUME 475 mL; TOTAL HEMOGLOBIN 9.3 G/dl (12.0-16.0)
[2019-12-11] MEDS: magnesium 4gm in 100ml NS 100 ML IV PRN (04:25)
--- NOTE | 2019-12-11 06:50 | NUR ---
Problems reprioritized. Patient report given, questions answered & plan of care reviewed with Joaquina SUAZO.
[2019-12-11] MEDS ORDERED: tamsulosin 0.4mg capsule PO SCH (08:00)
[2019-12-11] MEDS: K, MAG and/or Phos replacement - Verify level? MC SCH (08:00)
[2019-12-11] MEDS: amiodarone 200mg tablet NG SCH ×2 (08:53→21:07)
[2019-12-11] MEDS: lactobacillus rhamnosus 10,000 MMU CELLS/CAPSULE NG SCH ×2 (08:53→21:09)
[2019-12-11] MEDS: docusate sodium 100mg/10ml UD cup NG SCH ×2 (08:53→20:00)
[2019-12-11] MEDS: aspirin 81mg tab.chew NG SCH (08:53)
[2019-12-11] MEDS: acetaminophen 325mg tablet NG PRN ×2 (08:53→21:07)
[2019-12-11] MEDS: atorvastatin 20mg tablet NG SCH (08:55)
[2019-12-11] MEDS: clobetasol 0.05% cream 30gm TP SCH ×2 (08:56→21:14)
[2019-12-11] MEDS: pantoprazole 40 MG vial IV SCH (08:58)
[2019-12-11] MEDS: vitamin D (cholecalciferol) 1,000 unit tablet NG SCH (08:58)
[2019-12-11] MEDS: digoxin 250mcg/ml 2ml ampule IV SCH (09:00)
[2019-12-11] MEDS: Dextrose 10%-water IV solution 1,000 ML IV SCH (09:00)
[2019-12-11] MEDS: clopidogrel 75mg tablet NG SCH (09:10)
[2019-12-11] MEDS: apixaban 5mg tablet NG SCH ×2 (09:10→21:07)
[2019-12-11] MEDS ORDERED: normal saline 1000ml 1,000 ML IV SCH (12:35)
[2019-12-11] MEDS: methylPREDNISolone sod succ/PF 40mg inj. IV SCH ×2 (14:46→21:07)
--- NOTE | 2019-12-11 18:30 | NUR ---
Patient in room ICU 2042. I have received report from Joaquina loco and had the opportunity to ask questions and assume patient care.
[2019-12-11] MEDS: insulin glargine (Lantus) pen - multi-dose SQ SCH (21:00)
[2019-12-11] MEDS: HYDROmorphone 1 mg/ml syringe IV PRN (21:13)
[2019-12-12] VITALS (23 sets, daily range): BP systolic 99–160; BP diastolic 54–105
[2019-12-12] MEDS: ceFAZolin/D5W- 1GM premix 50 ML IV SCH ×4 (00:22→23:43)
[2019-12-12] MEDS: methylPREDNISolone sod succ/PF 40mg inj. IV SCH ×4 (02:21→21:03)
[2019-12-12] MEDS: furosemide 20 MG/2 ML vial IV SCH ×4 (02:21→21:03)
[2019-12-12] MEDS: mineral oil/petrolatum ophthal oint EACHEYE SCH ×2 (02:22→07:58)
[2019-12-12] MEDS: insulin regular, human U-100 3ml vial - multi-dose SQ SCH ×2 (02:25→08:43)
[2019-12-12 03:04] LABS: BASOPHILS % (AUTO) 0.1 % (0-1); EOSINOPHILS % (AUTO) 0 % (0-6); HEMATOCRIT 25.4 % (35.0-45.0); HEMOGLOBIN 8.5 g/dl (12.0-16.0); LYMPHOCYTES # (AUTO) 0.6 X10'3 (1.1-4.8); LYMPHOCYTES % (AUTO) 6.1 % (21-51); MEAN CORPUSCULAR HEMOGLOBIN 30.8 PG (27.0-31.0); MEAN CORPUSCULAR HGB CONC 33.5 g/dL (33.0-36.5); MEAN CORPUSCULAR VOLUME 91.8 FL (78-98); MEAN PLATELET VOLUME 8.8 FL (7.4-10.4); MONOCYTES # (AUTO) 0.3 X10'3 (0-0.9); MONOCYTES % (AUTO) 2.8 % (2-12); NEUTROPHILS # (AUTO) 8.4 X10'3 (1.8-7.7); PLATELET COUNT 206 X10'3 (140-440); RED BLOOD COUNT 2.77 X10'6 (4.20-5.60); RED CELL DISTRIBUTION WIDTH 14.8 % (11.5-14.5); WHITE BLOOD COUNT 9.2 X10'3 (4.5-11.0)
[2019-12-12 03:08] LABS: ALANINE AMINOTRANSFERASE 84 U/L (12-78); ALBUMIN 1.6 G/DL (3.4-5.0); ALBUMIN/GLOBULIN RATIO 0.4 (1.1-1.5); ALKALINE PHOSPHATASE 435 IU/L (46-116); ANION GAP 6 (8-16); ASPARTATE AMINO TRANSFERASE 91 U/L (10-37); BILIRUBIN,TOTAL 0.7 MG/DL (0.1-1.0); BLOOD UREA NITROGEN 46 MG/DL (7-18); BUN/CREATININE RATIO 41.8 (6.6-38.0); CALCIUM 7.4 MG/DL (8.5-10.1); CHLORIDE 98 MMOL/L (99-107); GLUCOSE 162 MG/DL (70-104); MAGNESIUM 1.9 MG/DL (1.5-2.4); PHOSPHORUS 4.1 MG/DL (2.3-4.5); POTASSIUM 3.7 MMOL/L (3.5-5.1); SODIUM 136 MMOL/L (135-145); TOTAL CARBON DIOXIDE 32.4 MMOL/L (24-32); TOTAL PROTEIN 5.6 G/DL (6.4-8.2); eGFR 48 ML/MIN
[2019-12-12] MEDS: ipratropium/albuterol 3ml nebule NEB SCH ×6 (03:32→23:11)
[2019-12-12 03:51] LABS: ABG BASE EXCESS 1.7 mmol/L (-2.0-3.0); ABG HCO3 24.6 mmol/L (22.0-26.0); ABG OXYGEN SATURATION 95.5 % (95-98); ABG PCO2 (T) 33.1 mmHg (35.0-45.0); ABG PH (T) 7.491 (7.350-7.450); ALLEN'S TEST POSITIVE; FCOHb 0.3 % (0.5-1.5); FO2Hb 95.2 % (94-100); PATIENT TEMPERATURE 37.7; PEEP 5 cm H2O; RESPIRATORY RATE 12 b/min; TIDAL VOLUME 475 mL; TOTAL HEMOGLOBIN 9.9 G/dl (12.0-16.0)
[2019-12-12] MEDS: Dextrose 10%-water IV solution 1,000 ML IV SCH ×2 (05:00→23:46)
[2019-12-12] MEDS: NORepinephrine 8 MG in NS 250ml IV soln IV SCH (05:58)
[2019-12-12] MEDS: K, MAG and/or Phos replacement - Verify level? MC SCH (06:42)
[2019-12-12] MEDS: docusate sodium 100mg/10ml UD cup NG SCH ×2 (06:42→20:00)
[2019-12-12] MEDS: clopidogrel 75mg tablet NG SCH (07:51)
[2019-12-12] MEDS: pantoprazole 40 MG vial IV SCH (07:51)
[2019-12-12] MEDS: atorvastatin 20mg tablet NG SCH (07:51)
[2019-12-12] MEDS: lactobacillus rhamnosus 10,000 MMU CELLS/CAPSULE NG SCH ×2 (07:51→20:00)
[2019-12-12] MEDS: apixaban 5mg tablet NG SCH ×2 (07:52→20:00)
[2019-12-12] MEDS: amiodarone 200mg tablet NG SCH ×2 (07:52→20:00)
[2019-12-12] MEDS: aspirin 81mg tab.chew NG SCH (07:52)
[2019-12-12] MEDS: vitamin D (cholecalciferol) 1,000 unit tablet NG SCH (07:58)
[2019-12-12] MEDS: clobetasol 0.05% cream 30gm TP SCH ×2 (07:58→22:02)
[2019-12-12] MEDS ORDERED: digoxin 250mcg (0.25mg) tablet PO SCH (08:00)
[2019-12-12] MEDS: midazolam 100mg in NS 100ml 100 ML IV PRN (08:13)
[2019-12-12 11:26] LABS: ABG BASE EXCESS 4.8 mmol/L (-2.0-3.0); ABG HCO3 27.8 mmol/L (22.0-26.0); ABG OXYGEN SATURATION 94.9 % (95-98); ABG PH (T) 7.518 (7.350-7.450); ABG PO2 (T) 75.8 mmHg (83-108); ALLEN'S TEST POSITIVE; FCOHb 0.3 % (0.5-1.5); FMetHb 0.3 % (0.3-1.12); FO2Hb 94.3 % (94-100); RESPIRATORY RATE 20 b/min; TOTAL HEMOGLOBIN 9.5 G/dl (12.0-16.0)
--- NOTE | 2019-12-12 18:30 | NUR ---
Patient in room ICU 2042. I have received report from GABRIELE Kunz and had the opportunity to ask questions and assume patient care.
--- NOTE | 2019-12-12 19:30 | NUR ---
Patients family at bedside. Break from CPAP mask, patient placed on 5 lpm nasal cannula. Patient unable to tolerate. Respiratory rate increased, with increased work of breathing with accessory muscle use. SpO2 decreased to mid 80's. Patient placed back on CPAP mask at 40 % fiO2. with increase in SpO2 to 91%. Will continue to monitor.
--- NOTE | 2019-12-12 19:40 | NUR ---
Patient with increased respiratory rate 22-24 with increased work of breathing. Patient heart rate 118. Patient is anxious and restless. SpO2 90% on 40% FiO2 via CPAP. 0.5mg Dilaudid IV for anxiety. Notified Arianna Green NP regarding anxiety and increased respiratory rate and effort.
--- NOTE | 2019-12-12 19:58 | NUR ---
Spoke with Arianna Green NP re: patients NPO status. Patient did not have a swallow evaluation today post extubation. Instructions to do a nursing bedside swallow evaluation and if the patient fails test to place NG tube for medication administration.
--- NOTE | 2019-12-12 20:15 | NUR ---
Patient failed swallow evaluation. NG tube will be placed.
[2019-12-12] MEDS: insulin glargine (Lantus) pen - multi-dose SQ SCH (21:00)
--- NOTE | 2019-12-12 21:00 | NUR ---
NG placement attempted, without success.
[2019-12-12] MEDS: HYDROmorphone inj. 0.5 MG/0.5 ML DISP.SYRIN IV PRN (22:10)
--- NOTE | 2019-12-12 22:43 | NUR ---
Arianna Green NP called re: increased effort and work of breathing with accessory muscle use. Respiratory rate 26 on 50% FiO2. SpO2 90%. He will come to bedside.
--- NOTE | 2019-12-12 22:55 | NUR ---
Arianna Green, REFLECTOR DRILLER AND DEBURRER at bedside. Ventilator to BiPAP setting at 50 % FiO2. IPAP 16, EPAP 8. Unable to place NG at this time secondary to patient desaturating without continuous BiPAP. Unable to give PO meds. Arianna Green aware. Orders received for additional 20mg Lasix IV once, 0.5mg Dilaudid IV once, 5,000 unit of Heparin SQ once.
[2019-12-12 23:01] LABS: ABG OXYGEN SATURATION 89.3 % (95-98); ABG PCO2 (T) 37.5 mmHg (35.0-45.0); ABG PH (T) 7.427 (7.350-7.450); ALLEN'S TEST POSITIVE; FCOHb 0.3 % (0.5-1.5); PATIENT TEMPERATURE 37.7; TOTAL HEMOGLOBIN 10.5 G/dl (12.0-16.0)
[2019-12-12] MEDS ORDERED: HYDROmorphone inj. 0.5 MG/0.5 ML DISP.SYRIN IV ONE (23:10)
[2019-12-12] MEDS ORDERED: heparin, porcine 5000 units/ml vial SQ ONE (23:10)
[2019-12-12] MEDS ORDERED: furosemide 20 MG/2 ML vial IV ONE (23:10)
[2019-12-13] VITALS (24 sets, daily range): BP systolic 113–143; BP diastolic 50–94
[2019-12-13] MEDS: furosemide 20 MG/2 ML vial IV SCH ×4 (01:53→21:29)
[2019-12-13] MEDS: methylPREDNISolone sod succ/PF 40mg inj. IV SCH (01:54)
[2019-12-13 02:30] LABS: BASOPHILS % (AUTO) 0.1 % (0-1); EOSINOPHILS % (AUTO) 0 % (0-6); HEMATOCRIT 26.6 % (35.0-45.0); HEMOGLOBIN 8.9 g/dl (12.0-16.0); LYMPHOCYTES % (AUTO) 6.2 % (21-51); MEAN CORPUSCULAR HEMOGLOBIN 30.7 PG (27.0-31.0); MEAN CORPUSCULAR HGB CONC 33.4 g/dL (33.0-36.5); MEAN CORPUSCULAR VOLUME 91.8 FL (78-98); MEAN PLATELET VOLUME 8.9 FL (7.4-10.4); MONOCYTES # (AUTO) 0.9 X10'3 (0-0.9); MONOCYTES % (AUTO) 5.2 % (2-12); NEUTROPHILS # (AUTO) 14.4 X10'3 (1.8-7.7); NEUTROPHILS % (AUTO) 88.5 % (42-75); PLATELET COUNT 267 X10'3 (140-440); RED CELL DISTRIBUTION WIDTH 14.4 % (11.5-14.5); WHITE BLOOD COUNT 16.2 X10'3 (4.5-11.0)
[2019-12-13 02:54] LABS: ALANINE AMINOTRANSFERASE 81 U/L (12-78); ALBUMIN 1.9 G/DL (3.4-5.0); ALBUMIN/GLOBULIN RATIO 0.5 (1.1-1.5); ALKALINE PHOSPHATASE 394 IU/L (46-116); ANION GAP 5 (8-16); ASPARTATE AMINO TRANSFERASE 87 U/L (10-37); BILIRUBIN,TOTAL 0.8 MG/DL (0.1-1.0); BLOOD UREA NITROGEN 55 MG/DL (7-18); BUN/CREATININE RATIO 47.4 (6.6-38.0); CALCIUM 7.7 MG/DL (8.5-10.1); CHLORIDE 100 MMOL/L (99-107); CREATININE 1.16 MG/DL (0.40-0.90); GLUCOSE 147 MG/DL (70-104); MAGNESIUM 1.8 MG/DL (1.5-2.4); PHOSPHORUS 4.2 MG/DL (2.3-4.5); POTASSIUM 3.2 MMOL/L (3.5-5.1); SODIUM 139 MMOL/L (135-145); TOTAL CARBON DIOXIDE 33.7 MMOL/L (24-32); TOTAL PROTEIN 5.9 G/DL (6.4-8.2); eGFR 45 ML/MIN
[2019-12-13] MEDS: ipratropium/albuterol 3ml nebule NEB SCH ×6 (03:23→23:43)
[2019-12-13] MEDS: potassium Cl 20mEq/100mL bag 100 ML IV PRN ×2 (03:52→05:00)
--- NOTE | 2019-12-13 05:36 | NUR ---
[id number]: Patient with decreased work of breathing on BiPAP. Patient appears to be resting at times throughout the night. Oral care provided throughout the night. Patient desaturates when not on BiPap.
--- NOTE | 2019-12-13 06:21 | NUR ---
Problems reprioritized. Patient report given, questions answered & plan of care reviewed with GABRIELE Kunz.
[2019-12-13] MEDS: lactobacillus rhamnosus 10,000 MMU CELLS/CAPSULE NG SCH ×2 (08:00→20:00)
[2019-12-13] MEDS: vitamin D (cholecalciferol) 1,000 unit tablet NG SCH (08:00)
[2019-12-13] MEDS: clobetasol 0.05% cream 30gm TP SCH ×2 (08:00→21:30)
[2019-12-13] MEDS: atorvastatin 20mg tablet NG SCH (08:00)
[2019-12-13] MEDS: K, MAG and/or Phos replacement - Verify level? MC SCH (08:00)
[2019-12-13] MEDS: pantoprazole 40 MG vial IV SCH (08:00)
[2019-12-13] MEDS: apixaban 5mg tablet NG SCH ×2 (08:00→20:00)
[2019-12-13] MEDS: amiodarone 200mg tablet NG SCH ×2 (08:00→20:00)
[2019-12-13] MEDS: docusate sodium 100mg/10ml UD cup NG SCH ×2 (08:00→20:00)
[2019-12-13] MEDS: ceFAZolin/D5W- 1GM premix 50 ML IV SCH ×2 (08:00→17:02)
[2019-12-13] MEDS: clopidogrel 75mg tablet NG SCH (08:00)
[2019-12-13] MEDS: aspirin 81mg tab.chew NG SCH (08:30)
[2019-12-13] MEDS ORDERED: total parenteral nutrition 1 EACH, calcium gluconate 12 MEQ, magnesium 16 MEQ, sodium 8... IV SCH ×14 (08:55)
[2019-12-13] MEDS ORDERED: digoxin 250mcg/ml 2ml ampule IV ONE (09:00)
[2019-12-13] MEDS: enoxaparin 100mg/ml syringe SUBCUT SCH ×2 (12:34→21:29)
--- NOTE | 2019-12-13 13:05 | NUR ---
TPN Consult: Pt has been extubated but unable to place NG, not fully alert enough to swallow, PO meds held, and pending COSMETICIAN APPRENTICE BSS tomorrow per RN. MD requests TPN since pt has central line until PO diet advancement tomorrow per RN. Previously tolerating EN at goal w/ LBM 12/11 prior to extubation. Per ASPEN guidelines; PN if prolonged NPO 7-10 days and/or no bowel function. RD d/w RN regarding PPN vs IV DEX per MD approval given only 24 hours NPO. TPN recs below. Will monitor for PO diet advancement and tolerance pending COSMETICIAN APPRENTICE recs tomorrow as well as PN tolerance. Recommend: 1. TPN per MD via central line using 2:1 Clinimix E 5/20 at 90ml/hr goal w/ 10ml 20% intralipids to run separately for 12 hours each day. In total; to provide 2160ml fluid, 2141 total kcals, 108g AA, and 432g DEX(3.49mg/kg/min). Initiate at 30ml/hr and advance Q12 to goal as tolerated. 2. Advance diet as medically indicated to heart healthy 3. Prealbumin q Saturday and ; Daily weights 4. monitor for PN tolerance 5. routine bowel care 6. monitor for ONS needs once PO diet advances Addendum: 12/13/19 at [address] Amended: Links added.
[2019-12-13] MEDS ORDERED: [UNRECOGNIZED DRUG - OTHER] IV SCH (17:00)
[2019-12-13] MEDS ORDERED: DEXT IV SCH (17:00)
[2019-12-13] MEDS ORDERED: CALCIUM IV SCH (17:00)
[2019-12-13] MEDS ORDERED: TRACE ELEMENT IV SCH (17:00)
[2019-12-13] MEDS ORDERED: LYTES IV SCH (17:00)
[2019-12-13] MEDS: Dextrose 10%-water IV solution 1,000 ML IV SCH (21:00)
[2019-12-13] MEDS: insulin glargine (Lantus) pen - multi-dose SQ SCH (21:00)
[2019-12-13] MEDS: fat emulsion IV bag 250 ML IV SCH (21:28)
[2019-12-14] VITALS (24 sets, daily range): BP systolic 111–157; BP diastolic 62–91
[2019-12-14] MEDS: ceFAZolin/D5W- 1GM premix 50 ML IV SCH ×4 (00:06→23:50)
[2019-12-14] MEDS: furosemide 20 MG/2 ML vial IV SCH ×2 (02:15→08:03)
[2019-12-14] MEDS: insulin regular, human U-100 3ml vial - multi-dose SQ SCH ×4 (02:53→20:56)
[2019-12-14 02:55] LABS: BASOPHILS % (AUTO) 0.2 % (0-1); EOSINOPHILS % (AUTO) 0 % (0-6); HEMATOCRIT 27.5 % (35.0-45.0); HEMOGLOBIN 9.1 g/dl (12.0-16.0); LYMPHOCYTES # (AUTO) 1.9 X10'3 (1.1-4.8); LYMPHOCYTES % (AUTO) 10.4 % (21-51); MEAN CORPUSCULAR HEMOGLOBIN 30.7 PG (27.0-31.0); MEAN CORPUSCULAR HGB CONC 32.9 g/dL (33.0-36.5); MEAN CORPUSCULAR VOLUME 93.2 FL (78-98); MEAN PLATELET VOLUME 8.8 FL (7.4-10.4); MONOCYTES # (AUTO) 1.7 X10'3 (0-0.9); MONOCYTES % (AUTO) 9.3 % (2-12); NEUTROPHILS # (AUTO) 14.9 X10'3 (1.8-7.7); NEUTROPHILS % (AUTO) 80.1 % (42-75); PLATELET COUNT 363 X10'3 (140-440); RED BLOOD COUNT 2.95 X10'6 (4.20-5.60); RED CELL DISTRIBUTION WIDTH 14.7 % (11.5-14.5); WHITE BLOOD COUNT 18.6 X10'3 (4.5-11.0)
[2019-12-14 03:03] LABS: ALANINE AMINOTRANSFERASE 78 U/L (12-78); ALBUMIN 2.1 G/DL (3.4-5.0); ALBUMIN/GLOBULIN RATIO 0.5 (1.1-1.5); ALKALINE PHOSPHATASE 334 IU/L (46-116); ANION GAP 2 (8-16); ASPARTATE AMINO TRANSFERASE 89 U/L (10-37); BILIRUBIN,TOTAL 0.7 MG/DL (0.1-1.0); BLOOD UREA NITROGEN 61 MG/DL (7-18); CALCIUM 7.8 MG/DL (8.5-10.1); CHLORIDE 103 MMOL/L (99-107); CREATININE 1.11 MG/DL (0.40-0.90); GLUCOSE 196 MG/DL (70-104); MAGNESIUM 2.1 MG/DL (1.5-2.4); PHOSPHORUS 2.9 MG/DL (2.3-4.5); POTASSIUM 3.7 MMOL/L (3.5-5.1); PREALBUMIN 22.5 MG/DL (19-36); SODIUM 141 MMOL/L (135-145); TOTAL CARBON DIOXIDE 36.2 MMOL/L (24-32); eGFR 47 ML/MIN
[2019-12-14] MEDS: ipratropium/albuterol 3ml nebule NEB SCH ×6 (03:23→22:48)
--- NOTE | 2019-12-14 06:30 | NUR ---
Patient in room ICU 2042. I have received report from Kallie SUAZO and had the opportunity to ask questions and assume patient care.
--- NOTE | 2019-12-14 06:42 | NUR ---
Problems reprioritized. Patient report given, questions answered & plan of care reviewed with GABRIELE Gomez.
[2019-12-14] MEDS: vitamin D (cholecalciferol) 1,000 unit tablet NG SCH (08:00)
[2019-12-14] MEDS: atorvastatin 20mg tablet NG SCH (08:00)
[2019-12-14] MEDS: K, MAG and/or Phos replacement - Verify level? MC SCH (08:00)
[2019-12-14] MEDS: lactobacillus rhamnosus 10,000 MMU CELLS/CAPSULE NG SCH ×2 (08:00→19:07)
[2019-12-14] MEDS: clopidogrel 75mg tablet NG SCH (08:00)
[2019-12-14] MEDS: amiodarone 200mg tablet NG SCH ×2 (08:00→19:07)
[2019-12-14] MEDS: pantoprazole 40 MG vial IV SCH (08:00)
[2019-12-14] MEDS: apixaban 5mg tablet NG SCH ×2 (08:00→19:07)
[2019-12-14] MEDS: docusate sodium 100mg/10ml UD cup NG SCH ×2 (08:00→19:07)
[2019-12-14] MEDS: digoxin 250mcg/ml 2ml ampule IV SCH (08:01)
[2019-12-14] MEDS: methylPREDNISolone sod succ/PF 40mg inj. IV SCH (08:02)
[2019-12-14] MEDS: enoxaparin 100mg/ml syringe SUBCUT SCH ×2 (08:05→20:40)
[2019-12-14] MEDS: clobetasol 0.05% cream 30gm TP SCH ×2 (08:15→20:58)
[2019-12-14] MEDS: MVI, adult No.4 with vit. K 10 ML in dextrose 5% water 500ml 500 ML IV SCH ×2 (08:15)
[2019-12-14] MEDS: aspirin 81mg tab.chew NG SCH (08:30)
--- NOTE | 2019-12-14 12:12 | NUR ---
F/u: Pt not safe for SENIOR PLANNER BSS at this time since so bipap dependent per RN. Unable to place NG per RN. Pt to continue TPN tolerating at trickle to advance to goal today w/ functional gut. Would benefit from EN/PO diet advancement as soon as pt more stable given functioning gut. Will continue to monitor. Addendum: 12/14/19 at [address] Amended: Links added.
[2019-12-14] MEDS ORDERED: furosemide 10 MG/1 ML 10ml inj IV ONE (12:30)
[2019-12-14] MEDS: furosemide inj 100 ML IV SCH (14:03)
[2019-12-14] MEDS ORDERED: Trace element-5 inj. 1 ML in AA 5 %/CALCIUM/LYTES/DEXT 20% 2,000 ML IV SCH (15:00)
--- NOTE | 2019-12-14 16:21 | NUR ---
called Dr Orellana about the patients output with the lasix gtt, informed him that she is putting out over the protocol amount, he stated to go down to 5mg/hr no other new orders at this time
[2019-12-14] MEDS: Dextrose 10%-water IV solution 1,000 ML IV SCH (17:00)
--- NOTE | 2019-12-14 18:22 | NUR ---
Problems reprioritized. Patient report given, questions answered & plan of care reviewed with Kallie SUAZO.
[2019-12-14] MEDS: potassium Cl 20mEq/100mL bag 100 ML IV PRN ×2 (20:40→22:01)
[2019-12-14] MEDS: fat emulsion IV bag 250 ML IV SCH (20:40)
[2019-12-14] MEDS: insulin glargine (Lantus) pen - multi-dose SQ SCH (20:58)
[2019-12-15] VITALS (24 sets, daily range): BP systolic 103–156; BP diastolic 53–103
[2019-12-15] MEDS: insulin regular, human U-100 3ml vial - multi-dose SQ SCH ×4 (02:24→22:07)
[2019-12-15 02:53] LABS: ALANINE AMINOTRANSFERASE 59 U/L (12-78); ALBUMIN 2.1 G/DL (3.4-5.0); ALBUMIN/GLOBULIN RATIO 0.6 (1.1-1.5); ALKALINE PHOSPHATASE 252 IU/L (46-116); ANION GAP 1 (8-16); ASPARTATE AMINO TRANSFERASE 62 U/L (10-37); BASOPHILS % (AUTO) 0.1 % (0-1); BILIRUBIN,TOTAL 0.8 MG/DL (0.1-1.0); BLOOD UREA NITROGEN 50 MG/DL (7-18); BUN/CREATININE RATIO 54.3 (6.6-38.0); CALCIUM 7.8 MG/DL (8.5-10.1); CHLORIDE 104 MMOL/L (99-107); CREATININE 0.92 MG/DL (0.40-0.90); EOSINOPHILS % (AUTO) 0.1 % (0-6); GLUCOSE 147 MG/DL (70-104); HEMATOCRIT 25.6 % (35.0-45.0); HEMOGLOBIN 8.7 g/dl (12.0-16.0); LYMPHOCYTES # (AUTO) 1.5 X10'3 (1.1-4.8); LYMPHOCYTES % (AUTO) 9.3 % (21-51); MAGNESIUM 1.7 MG/DL (1.5-2.4); MEAN CORPUSCULAR HEMOGLOBIN 32.1 PG (27.0-31.0); MEAN CORPUSCULAR HGB CONC 34.1 g/dL (33.0-36.5); MEAN CORPUSCULAR VOLUME 94.2 FL (78-98); MEAN PLATELET VOLUME 8.6 FL (7.4-10.4); MONOCYTES # (AUTO) 0.8 X10'3 (0-0.9); NEUTROPHILS # (AUTO) 13.8 X10'3 (1.8-7.7); NEUTROPHILS % (AUTO) 85.5 % (42-75); PHOSPHORUS 2.6 MG/DL (2.3-4.5); PLATELET COUNT 373 X10'3 (140-440); POTASSIUM 3.2 MMOL/L (3.5-5.1); RED BLOOD COUNT 2.72 X10'6 (4.20-5.60); RED CELL DISTRIBUTION WIDTH 14.8 % (11.5-14.5); SODIUM 144 MMOL/L (135-145); TOTAL CARBON DIOXIDE 39.5 MMOL/L (24-32); TOTAL PROTEIN 5.8 G/DL (6.4-8.2); WHITE BLOOD COUNT 16.1 X10'3 (4.5-11.0); eGFR 59 ML/MIN
[2019-12-15] MEDS: ipratropium/albuterol 3ml nebule NEB SCH ×6 (03:28→23:09)
[2019-12-15] MEDS: potassium Cl 20mEq/100mL bag 100 ML IV PRN ×2 (03:52→05:05)
--- NOTE | 2019-12-15 06:29 | NUR ---
Problems reprioritized. Patient report given, questions answered & plan of care reviewed with GABRIELE Gomez.
[2019-12-15] MEDS: pantoprazole 40 MG vial IV SCH (07:53)
[2019-12-15] MEDS: digoxin 250mcg/ml 2ml ampule IV SCH (07:53)
[2019-12-15] MEDS: methylPREDNISolone sod succ/PF 40mg inj. IV SCH (07:53)
[2019-12-15] MEDS: docusate sodium 100mg/10ml UD cup NG SCH ×2 (08:00→20:00)
[2019-12-15] MEDS: vitamin D (cholecalciferol) 1,000 unit tablet NG SCH (08:00)
[2019-12-15] MEDS: clopidogrel 75mg tablet NG SCH (08:00)
[2019-12-15] MEDS: atorvastatin 20mg tablet NG SCH (08:00)
[2019-12-15] MEDS: apixaban 5mg tablet NG SCH ×2 (08:00→20:00)
[2019-12-15] MEDS: amiodarone 200mg tablet NG SCH ×2 (08:00→20:00)
[2019-12-15] MEDS: lactobacillus rhamnosus 10,000 MMU CELLS/CAPSULE NG SCH ×2 (08:00→20:00)
[2019-12-15] MEDS: ceFAZolin/D5W- 1GM premix 50 ML IV SCH ×3 (08:03→23:45)
[2019-12-15] MEDS: clobetasol 0.05% cream 30gm TP SCH ×2 (08:05→20:53)
[2019-12-15] MEDS: enoxaparin 100mg/ml syringe SUBCUT SCH ×2 (08:05→20:52)
[2019-12-15] MEDS: aspirin 81mg tab.chew NG SCH (08:30)
--- NOTE | 2019-12-15 08:30 | NUR ---
Speech Pathology came by to assess patient for a swallow eval, he felt that with her respiratory stats that it would be problematic and that she will com assess her again later
[2019-12-15] MEDS: K, MAG and/or Phos replacement - Verify level? MC SCH (08:57)
--- NOTE | 2019-12-15 10:30 | NUR ---
Dr Orellana ordered for patient to have a corpack placed, if unsuccessful will consider IR for placement
[2019-12-15] MEDS: Dextrose 10%-water IV solution 1,000 ML IV SCH (13:00)
[2019-12-15] MEDS: Trace element-5 inj. 1 ML in AA 5 %/CALCIUM/LYTES/DEXT 20% 2,000 ML IV SCH (13:45)
--- NOTE | 2019-12-15 18:22 | NUR ---
Problems reprioritized. Patient report given, questions answered & plan of care reviewed with Moraima SUAZO.
--- NOTE | 2019-12-15 18:23 | NUR ---
Patient in room ICU 2042. I have received report from GABRIELE CALLES and had the opportunity to ask questions and assume patient care.
[2019-12-15] MEDS: fat emulsion IV bag 250 ML IV SCH (20:52)
[2019-12-15] MEDS: insulin glargine (Lantus) pen - multi-dose SQ SCH (22:06)
[2019-12-16] VITALS (22 sets, daily range): BP systolic 89–126; BP diastolic 47–76
[2019-12-16] MEDS: insulin regular, human U-100 3ml vial - multi-dose SQ SCH ×3 (01:58→21:34)
[2019-12-16 03:05] LABS: ALANINE AMINOTRANSFERASE 54 U/L (12-78); ALBUMIN/GLOBULIN RATIO 0.6 (1.1-1.5); ALKALINE PHOSPHATASE 200 IU/L (46-116); ANION GAP 0 (8-16); ASPARTATE AMINO TRANSFERASE 58 U/L (10-37); BILIRUBIN,TOTAL 0.8 MG/DL (0.1-1.0); BLOOD UREA NITROGEN 43 MG/DL (7-18); BUN/CREATININE RATIO 50.6 (6.6-38.0); CALCIUM 7.8 MG/DL (8.5-10.1); CHLORIDE 100 MMOL/L (99-107); CREATININE 0.85 MG/DL (0.40-0.90); GLUCOSE 323 MG/DL (70-104); MAGNESIUM 1.6 MG/DL (1.5-2.4); PHOSPHORUS 3.7 MG/DL (2.3-4.5); POTASSIUM 3.3 MMOL/L (3.5-5.1); SODIUM 142 MMOL/L (135-145); TOTAL PROTEIN 5.5 G/DL (6.4-8.2); eGFR 65 ML/MIN
[2019-12-16 03:07] LABS: TOTAL CARBON DIOXIDE 42.3 MMOL/L (24-32)
[2019-12-16] MEDS: ipratropium/albuterol 3ml nebule NEB SCH ×6 (03:17→23:37)
[2019-12-16] MEDS: potassium Cl 20mEq/100mL bag 100 ML IV PRN ×2 (03:38→05:00)
--- NOTE | 2019-12-16 06:30 | NUR ---
Patient in room ICU 2042. I have received report from GABRIELE Valera and had the opportunity to ask questions and assume patient care.
[2019-12-16] MEDS: amiodarone 200mg tablet NG SCH (08:00)
[2019-12-16] MEDS: clobetasol 0.05% cream 30gm TP SCH ×2 (08:00→20:39)
[2019-12-16] MEDS: vitamin D (cholecalciferol) 1,000 unit tablet NG SCH (08:00)
[2019-12-16] MEDS: apixaban 5mg tablet NG SCH ×2 (08:00→20:00)
[2019-12-16] MEDS: lactobacillus rhamnosus 10,000 MMU CELLS/CAPSULE NG SCH ×2 (08:00→20:00)
[2019-12-16] MEDS: docusate sodium 100mg/10ml UD cup NG SCH ×2 (08:00→20:00)
[2019-12-16] MEDS: clopidogrel 75mg tablet NG SCH (08:00)
[2019-12-16] MEDS: atorvastatin 20mg tablet NG SCH (08:00)
[2019-12-16] MEDS: aspirin 81mg tab.chew NG SCH (08:30)
[2019-12-16] MEDS: Dextrose 10%-water IV solution 1,000 ML IV SCH (09:00)
[2019-12-16] MEDS: K, MAG and/or Phos replacement - Verify level? MC SCH (09:15)
[2019-12-16] MEDS: digoxin 250mcg/ml 2ml ampule IV SCH (09:45)
[2019-12-16] MEDS: methylPREDNISolone sod succ/PF 40mg inj. IV SCH (09:45)
[2019-12-16] MEDS: ceFAZolin/D5W- 1GM premix 50 ML IV SCH ×3 (10:00→23:52)
[2019-12-16] MEDS: enoxaparin 100mg/ml syringe SUBCUT SCH ×2 (10:46→20:37)
[2019-12-16] MEDS: pantoprazole 40 MG vial IV SCH (10:47)
--- NOTE | 2019-12-16 11:27 | NUR ---
Reassessment: Pt tolerating TPN at goal. Na down to 142 today w/ no signs of refeeding syndrome. RN reports pt able to tolerate high flow nasal cannula for brief periods and would be able to tolerate at meal times; pending SPRING SALVAGE WORKER f/u today. RD recommended corpak for optimal nutrition support s/p extubation given functional gut, to prevent bacterial translocation, and can adjust IF pt advanced to PO diet until PO steady 65% avg meals. No NG at this time pending SPRING SALVAGE WORKER BSS per MD. LBM 12/14. Will continue to monitor. Recommend: 1. TPN per MD via central line using 2:1 Clinimix E 02/16 at 90ml/hr goal w/ 10ml 20% intralipids to run separately for 12 hours each day. In total; to provide 2160ml fluid, 2141 total kcals, 108g AA, and 432g DEX(3.49mg/kg/min). Initiate at 30ml/hr and advance Q12 to goal as tolerated. 2. Advance diet as medically indicated to heart healthy 3. Prealbumin q Saturday and ; Daily weights 4. routine bowel care 5. EN for optimal nutrition support delivery via NG given functional gut/NPO s/p extubation Addendum: 12/16/19 at [address] Amended: Links added.
[2019-12-16] MEDS: MVI, adult No.4 with vit. K 10 ML in dextrose 5% water 500ml 500 ML IV SCH ×2 (11:45)
[2019-12-16 12:11] LABS: BASOPHILS # (AUTO) 0.1 X10'3 (0-0.2); BASOPHILS % (AUTO) 0.3 % (0-1); EOSINOPHILS # (AUTO) 0.1 X10'3 (0-0.9); EOSINOPHILS % (AUTO) 0.6 % (0-6); LYMPHOCYTES # (AUTO) 1.4 X10'3 (1.1-4.8); LYMPHOCYTES % (AUTO) 8.1 % (21-51); MONOCYTES # (AUTO) 0.4 X10'3 (0-0.9); MONOCYTES % (AUTO) 2.5 % (2-12); NEUTROPHILS # (AUTO) 15.5 X10'3 (1.8-7.7); NEUTROPHILS % (AUTO) 88.5 % (42-75)
[2019-12-16 13:15] LABS: HEMATOCRIT 24.7 % (35.0-45.0); HEMOGLOBIN 8.3 g/dl (12.0-16.0); MEAN CORPUSCULAR HEMOGLOBIN 31.9 PG (27.0-31.0); MEAN CORPUSCULAR HGB CONC 33.8 g/dL (33.0-36.5); MEAN CORPUSCULAR VOLUME 94.5 FL (78-98); MEAN PLATELET VOLUME 9.2 FL (7.4-10.4); PLATELET COUNT 447 X10'3 (140-440); RED BLOOD COUNT 2.61 X10'6 (4.20-5.60); RED CELL DISTRIBUTION WIDTH 14.4 % (11.5-14.5)
[2019-12-16] MEDS: Trace element-5 inj. 1 ML in AA 5 %/CALCIUM/LYTES/DEXT 20% 2,000 ML IV SCH (13:57)
--- NOTE | 2019-12-16 15:09 | NUR ---
pt c/o having to urinate with garnica catheter in place. pt urinating about 30-50mL/hr on Lasix gtt. Bladder scan showing >800 mL. Current garnica very dirty so I changed out garnica. 30ml Urine return noted on placement. checked on pt in a few hours. total 150ml noted in catheter bag. pt still c/o feeling like she has to urinate. New bladder scan performed and showed >900 mL in bladder. Garnica removed to see if pt could void on her own, so far pt unable to urinate on her own. Dr. Orellana aware and stated to order a full abd ultrasound to check for ascites around the bladder. order for US placed.
[2019-12-16] MEDS ORDERED: amiodarone 150mg/dext, iso-os 100 ML IV ONE (20:15)
[2019-12-16] MEDS ORDERED: amiodarone/D5 360MG/200ML BAG 200 ML IV ONE (20:25)
[2019-12-16] MEDS: furosemide inj 100 ML IV SCH (20:40)
[2019-12-16] MEDS: amiodarone/D5 360MG/200ML BAG 200 ML IV SCH (20:40)
[2019-12-16] MEDS: fat emulsion IV bag 250 ML IV SCH (21:04)
[2019-12-16] MEDS: insulin glargine (Lantus) pen - multi-dose SQ SCH (21:35)
[2019-12-17] VITALS (35 sets, daily range): BP systolic 69–142; BP diastolic 30–80
[2019-12-17] MEDS ORDERED: albumin (Human) 5% 250ml 500 ML IV ONE (01:54)
[2019-12-17] MEDS ORDERED: NORepinephrine 8mg/ 250ml NS 250 ML IV ONE (02:23)
[2019-12-17 02:59] LABS: BASOPHILS % (AUTO) 0.1 % (0-1); EOSINOPHILS % (AUTO) 0.1 % (0-6); LYMPHOCYTES # (AUTO) 1.9 X10'3 (1.1-4.8); LYMPHOCYTES % (AUTO) 9.5 % (21-51); MEAN CORPUSCULAR HEMOGLOBIN 32.1 PG (27.0-31.0); MEAN CORPUSCULAR HGB CONC 33.7 g/dL (33.0-36.5); MEAN CORPUSCULAR VOLUME 95.2 FL (78-98); MEAN PLATELET VOLUME 8.9 FL (7.4-10.4); MONOCYTES # (AUTO) 0.8 X10'3 (0-0.9); MONOCYTES % (AUTO) 4.2 % (2-12); NEUTROPHILS # (AUTO) 16.8 X10'3 (1.8-7.7); NEUTROPHILS % (AUTO) 86.1 % (42-75); PLATELET COUNT 339 X10'3 (140-440); RED BLOOD COUNT 1.62 X10'6 (4.20-5.60); RED CELL DISTRIBUTION WIDTH 14.6 % (11.5-14.5); WHITE BLOOD COUNT 19.5 X10'3 (4.5-11.0)
[2019-12-17 03:08] LABS: HEMOGLOBIN 5.2 g/dl (12.0-16.0)
[2019-12-17 03:09] LABS: HEMATOCRIT 15.4 % (35.0-45.0)
[2019-12-17 03:12] LABS: ALANINE AMINOTRANSFERASE 47 U/L (12-78); ALBUMIN 2.4 G/DL (3.4-5.0); ALBUMIN/GLOBULIN RATIO 0.9 (1.1-1.5); ALKALINE PHOSPHATASE 134 IU/L (46-116); ANION GAP 4 (8-16); ASPARTATE AMINO TRANSFERASE 49 U/L (10-37); BILIRUBIN,TOTAL 0.6 MG/DL (0.1-1.0); BLOOD UREA NITROGEN 70 MG/DL (7-18); BUN/CREATININE RATIO 48.3 (6.6-38.0); CALCIUM 7.3 MG/DL (8.5-10.1); CHLORIDE 100 MMOL/L (99-107); CREATININE 1.45 MG/DL (0.40-0.90); GLUCOSE 136 MG/DL (70-104); MAGNESIUM 1.5 MG/DL (1.5-2.4); PHOSPHORUS 5.2 MG/DL (2.3-4.5); POTASSIUM 3.3 MMOL/L (3.5-5.1); PREALBUMIN 22.6 MG/DL (19-36); SODIUM 141 MMOL/L (135-145); TOTAL CARBON DIOXIDE 36.6 MMOL/L (24-32); TOTAL PROTEIN 5.1 G/DL (6.4-8.2); eGFR 35 ML/MIN
[2019-12-17] MEDS: insulin regular, human U-100 3ml vial - multi-dose SQ SCH ×2 (03:42→09:11)
[2019-12-17] MEDS: ipratropium/albuterol 3ml nebule NEB SCH ×6 (03:44→23:08)
[2019-12-17] MEDS: HYDROmorphone inj. 0.5 MG/0.5 ML DISP.SYRIN IV PRN ×2 (03:50→08:56)
[2019-12-17] MEDS ORDERED: phytonadione inj. 5 MG in normal saline 100ml IV soln 99.5 ML IV ONE (04:15)
[2019-12-17] MEDS ORDERED: tranexamic acid 1gm/0.7% sal. 100 ML IV ONE (04:25)
[2019-12-17 04:51] LABS: ABG BASE EXCESS 10.3 mmol/L (-2.0-3.0); ABG HCO3 32.8 mmol/L (22.0-26.0); ABG OXYGEN SATURATION 99.4 % (95-98); ABG PCO2 (T) 34.5 mmHg (35.0-45.0); ABG PH (T) 7.597 (7.350-7.450); ABG PO2 (T) 434.3 mmHg (83-108); ALLEN'S TEST POSITIVE; FCOHb 0.3 % (0.5-1.5); FMetHb 0.5 % (0.3-1.12); FO2Hb 98.6 % (94-100); PATIENT TEMPERATURE 37.2; RESPIRATORY RATE 18 b/min; TOTAL HEMOGLOBIN 5.9 G/dl (12.0-16.0)
[2019-12-17 04:59] LABS: D-DIMER 2.67 MG/L FEU (0-0.50); PARTIAL THROMBOPLASTIN TIME 29 SECONDS (22-32)
[2019-12-17] MEDS: Dextrose 10%-water IV solution 1,000 ML IV SCH (05:00)
[2019-12-17] MEDS: amiodarone/D5 360MG/200ML BAG 200 ML IV SCH (05:01)
[2019-12-17 05:08] LABS: PLATELET COUNT 369 X10'3 (140-440)
[2019-12-17 05:21] LABS: MEAN CORPUSCULAR HEMOGLOBIN 31.2 PG (27.0-31.0); MEAN CORPUSCULAR HGB CONC 33.4 g/dL (33.0-36.5); MEAN CORPUSCULAR VOLUME 93.6 FL (78-98); MEAN PLATELET VOLUME 8.9 FL (7.4-10.4); PLATELET COUNT 325 X10'3 (140-440); RED BLOOD COUNT 2.24 X10'6 (4.20-5.60); RED CELL DISTRIBUTION WIDTH 14.2 % (11.5-14.5); WHITE BLOOD COUNT 23.1 X10'3 (4.5-11.0)
[2019-12-17] MEDS: HYDROmorphone 1 mg/ml syringe IV PRN (05:54)
[2019-12-17 06:30] LABS: HEMATOCRIT 24.8 % (35.0-45.0); HEMOGLOBIN 8.6 g/dl (12.0-16.0); MEAN CORPUSCULAR HEMOGLOBIN 31.8 PG (27.0-31.0); MEAN CORPUSCULAR HGB CONC 34.7 g/dL (33.0-36.5); MEAN CORPUSCULAR VOLUME 91.7 FL (78-98); MEAN PLATELET VOLUME 9.1 FL (7.4-10.4); PLATELET COUNT 300 X10'3 (140-440); RED CELL DISTRIBUTION WIDTH 13.9 % (11.5-14.5); WHITE BLOOD COUNT 22.5 X10'3 (4.5-11.0)
[2019-12-17] MEDS: enoxaparin 100mg/ml syringe SUBCUT SCH (08:00)
[2019-12-17] MEDS: vitamin D (cholecalciferol) 1,000 unit tablet NG SCH (08:00)
[2019-12-17] MEDS: atorvastatin 20mg tablet NG SCH (08:00)
[2019-12-17] MEDS: clopidogrel 75mg tablet NG SCH (08:00)
[2019-12-17] MEDS: K, MAG and/or Phos replacement - Verify level? MC SCH (08:00)
[2019-12-17] MEDS: lactobacillus rhamnosus 10,000 MMU CELLS/CAPSULE NG SCH ×2 (08:00→20:00)
[2019-12-17] MEDS: apixaban 5mg tablet NG SCH ×2 (08:00→20:00)
[2019-12-17] MEDS: MVI, adult No.4 with vit. K 10 ML in dextrose 5% water 500ml 500 ML IV SCH ×2 (08:00)
[2019-12-17] MEDS: docusate sodium 100mg/10ml UD cup NG SCH ×2 (08:00→20:00)
[2019-12-17] MEDS: aspirin 81mg tab.chew NG SCH (08:30)
[2019-12-17] MEDS: methylPREDNISolone sod succ/PF 40mg inj. IV SCH (08:56)
[2019-12-17] MEDS: ceFAZolin/D5W- 1GM premix 50 ML IV SCH ×2 (08:56→15:58)
[2019-12-17] MEDS: pantoprazole 40 MG vial IV SCH (08:56)
[2019-12-17] MEDS: digoxin 250mcg/ml 2ml ampule IV SCH (08:57)
[2019-12-17 11:25] LABS: HEMATOCRIT 24.8 % (35.0-45.0); HEMOGLOBIN 8.6 g/dl (12.0-16.0); MEAN CORPUSCULAR HEMOGLOBIN 31.7 PG (27.0-31.0); MEAN CORPUSCULAR HGB CONC 34.7 g/dL (33.0-36.5); MEAN CORPUSCULAR VOLUME 91.3 FL (78-98); MEAN PLATELET VOLUME 9.2 FL (7.4-10.4); PLATELET COUNT 337 X10'3 (140-440); RED BLOOD COUNT 2.71 X10'6 (4.20-5.60); RED CELL DISTRIBUTION WIDTH 13.9 % (11.5-14.5)
[2019-12-17 11:32] LABS: WHITE BLOOD COUNT 26.7 X10'3 (4.5-11.0)
[2019-12-17 13:45] LABS: ABG BASE EXCESS 7.9 mmol/L (-2.0-3.0); ABG HCO3 30.4 mmol/L (22.0-26.0); ABG OXYGEN SATURATION 94.6 % (95-98); ABG PCO2 (T) 34.8 mmHg (35.0-45.0); ABG PO2 (T) 72.2 mmHg (83-108); ALLEN'S TEST POSITIVE; FCOHb 0.3 % (0.5-1.5); FLOW 3 L/min; FO2Hb 94.3 % (94-100); PATIENT TEMPERATURE 37.1; TOTAL HEMOGLOBIN 9.6 G/dl (12.0-16.0)
[2019-12-17] MEDS: Trace element-5 inj. 1 ML in AA 5 %/CALCIUM/LYTES/DEXT 20% 2,000 ML IV SCH (13:55)
--- NOTE | 2019-12-17 15:15 | NUR ---
patients urine output has dropped off throughout the shift and she remains off the lasix drip at this time per Dr. Orellana. aware of low urine output, no new orders at this time.
[2019-12-17] MEDS ORDERED: furosemide 10 MG/1 ML 10ml inj IV ONE (16:40)
[2019-12-17] MEDS: potassium Cl 20mEq/100mL bag 100 ML IV PRN (17:06)
--- NOTE | 2019-12-17 17:59 | NUR ---
updated dr hanson that patients urine output has continued to drop off, one time dose of 60mg lasix given. Will continue to monitor.
--- NOTE | 2019-12-17 18:00 | NUR ---
ultrasound at the bedside
--- NOTE | 2019-12-17 18:07 | NUR ---
Per Dr. Orellana, he wants the TPN dose of 90 ml/hr cut in half to 45 ml/hr
--- NOTE | 2019-12-17 19:00 | NUR ---
Patient in room ICU 2042. I have received report from Lise SUAZO and had the opportunity to ask questions and assume patient care.
[2019-12-17] MEDS ORDERED: amiodarone/D5 360MG/200ML BAG 200 ML IV ONE (19:32)
[2019-12-17] MEDS: clobetasol 0.05% cream 30gm TP SCH (20:00)
--- NOTE | 2019-12-17 20:03 | NUR ---
September CREAM HAULER discussed the results of the vascular ultrasound with DR Orellana, no new orders
[2019-12-17 20:24] LABS: BASOPHILS # (AUTO) 0.1 X10'3 (0-0.2); BASOPHILS % (AUTO) 0.4 % (0-1); EOSINOPHILS % (AUTO) 0.1 % (0-6); HEMATOCRIT 23.2 % (35.0-45.0); LYMPHOCYTES # (AUTO) 1.7 X10'3 (1.1-4.8); MEAN CORPUSCULAR HEMOGLOBIN 31.7 PG (27.0-31.0); MEAN CORPUSCULAR HGB CONC 34.7 g/dL (33.0-36.5); MEAN CORPUSCULAR VOLUME 91.5 FL (78-98); MEAN PLATELET VOLUME 9.3 FL (7.4-10.4); MONOCYTES # (AUTO) 0.9 X10'3 (0-0.9); MONOCYTES % (AUTO) 3.1 % (2-12); NEUTROPHILS # (AUTO) 25.9 X10'3 (1.8-7.7); NEUTROPHILS % (AUTO) 90.4 % (42-75); PLATELET COUNT 340 X10'3 (140-440); RED BLOOD COUNT 2.53 X10'6 (4.20-5.60); RED CELL DISTRIBUTION WIDTH 14.1 % (11.5-14.5)
[2019-12-17 20:28] LABS: WHITE BLOOD COUNT 28.7 X10'3 (4.5-11.0)
[2019-12-17 20:38] LABS: ALANINE AMINOTRANSFERASE 30 U/L (12-78); ALBUMIN 2.4 G/DL (3.4-5.0); ALBUMIN/GLOBULIN RATIO 0.7 (1.1-1.5); ALKALINE PHOSPHATASE 135 IU/L (46-116); ANION GAP 10 (8-16); ASPARTATE AMINO TRANSFERASE 42 U/L (10-37); BILIRUBIN,TOTAL 0.8 MG/DL (0.1-1.0); BLOOD UREA NITROGEN 92 MG/DL (7-18); BUN/CREATININE RATIO 36.2 (6.6-38.0); CALCIUM 7.6 MG/DL (8.5-10.1); CHLORIDE 96 MMOL/L (99-107); CREATININE 2.54 MG/DL (0.40-0.90); GLUCOSE 167 MG/DL (70-104); MAGNESIUM 1.9 MG/DL (1.5-2.4); PHOSPHORUS 8.1 MG/DL (2.3-4.5); POTASSIUM 5.5 MMOL/L (3.5-5.1); SODIUM 135 MMOL/L (135-145); TOTAL CARBON DIOXIDE 29.5 MMOL/L (24-32); TOTAL PROTEIN 5.7 G/DL (6.4-8.2); eGFR 18 ML/MIN
[2019-12-17] MEDS: fat emulsion IV bag 250 ML IV SCH (20:52)
[2019-12-17] MEDS: insulin glargine (Lantus) pen - multi-dose SQ SCH (21:00)
[2019-12-18] VITALS (23 sets, daily range): BP systolic 78–148; BP diastolic 29–84
[2019-12-18] MEDS: ceFAZolin/D5W- 1GM premix 50 ML IV SCH ×3 (00:12→16:00)
[2019-12-18] MEDS: Dextrose 10%-water IV solution 1,000 ML IV SCH ×2 (01:00→21:00)
[2019-12-18] MEDS ORDERED: NORepinephrine 8mg/ 250ml NS 250 ML IV ONE (02:33)
[2019-12-18 02:35] LABS: BASOPHILS # (AUTO) 0.1 X10'3 (0-0.2); BASOPHILS % (AUTO) 0.3 % (0-1); EOSINOPHILS % (AUTO) 0 % (0-6); HEMATOCRIT 23.4 % (35.0-45.0); LYMPHOCYTES # (AUTO) 1.5 X10'3 (1.1-4.8); LYMPHOCYTES % (AUTO) 4.7 % (21-51); MEAN CORPUSCULAR HEMOGLOBIN 31.5 PG (27.0-31.0); MEAN CORPUSCULAR HGB CONC 34.1 g/dL (33.0-36.5); MEAN CORPUSCULAR VOLUME 92.5 FL (78-98); MEAN PLATELET VOLUME 9.8 FL (7.4-10.4); MONOCYTES # (AUTO) 1.2 X10'3 (0-0.9); MONOCYTES % (AUTO) 3.6 % (2-12); NEUTROPHILS # (AUTO) 29.6 X10'3 (1.8-7.7); NEUTROPHILS % (AUTO) 91.4 % (42-75); PLATELET COUNT 359 X10'3 (140-440); RED BLOOD COUNT 2.54 X10'6 (4.20-5.60); RED CELL DISTRIBUTION WIDTH 14.3 % (11.5-14.5)
[2019-12-18 02:37] LABS: WHITE BLOOD COUNT 32.4 X10'3 (4.5-11.0)
[2019-12-18 02:52] LABS: ALANINE AMINOTRANSFERASE 28 U/L (12-78); ALBUMIN 2.5 G/DL (3.4-5.0); ALBUMIN/GLOBULIN RATIO 0.7 (1.1-1.5); ALKALINE PHOSPHATASE 143 IU/L (46-116); ANION GAP 10 (8-16); ASPARTATE AMINO TRANSFERASE 44 U/L (10-37); BILIRUBIN,TOTAL 0.8 MG/DL (0.1-1.0); BLOOD UREA NITROGEN 103 MG/DL (7-18); BUN/CREATININE RATIO 34.9 (6.6-38.0); CALCIUM 7.7 MG/DL (8.5-10.1); CHLORIDE 94 MMOL/L (99-107); CREATININE 2.95 MG/DL (0.40-0.90); GLUCOSE 213 MG/DL (70-104); MAGNESIUM 1.9 MG/DL (1.5-2.4); POTASSIUM 5.6 MMOL/L (3.5-5.1); SODIUM 133 MMOL/L (135-145); TOTAL CARBON DIOXIDE 28.6 MMOL/L (24-32); TOTAL PROTEIN 5.9 G/DL (6.4-8.2); eGFR 15 ML/MIN
[2019-12-18 02:55] LABS: PHOSPHORUS 9.1 MG/DL (2.3-4.5)
[2019-12-18 03:07] LABS: HYPERSEGMENTED NEUTROPHILS 1+; NUCLEATED RED BLOOD CELLS 3 /100WBC (0-0); TOTAL CELLS COUNTED 100
[2019-12-18 03:08] LABS: TOXIC VACUOLATION 2+
[2019-12-18 03:09] LABS: PLATELET ESTIMATE NORMAL
[2019-12-18] MEDS: insulin regular, human U-100 3ml vial - multi-dose SQ SCH ×2 (03:09→08:43)
[2019-12-18] MEDS: ipratropium/albuterol 3ml nebule NEB SCH ×6 (03:14→23:22)
[2019-12-18] MEDS: HYDROmorphone 1 mg/ml syringe IV PRN ×2 (03:35→15:21)
[2019-12-18] MEDS: amiodarone inj. 450 MG in dextrose 5%-water 241 ML IV SCH ×3 (06:00→23:18)
[2019-12-18] MEDS: NORepinephrine 8mg/ 250ml NS 250 ML IV SCH ×6 (06:03→21:25)
[2019-12-18] MEDS ORDERED: enoxaparin 100mg/ml syringe SUBCUT SCH (08:00)
[2019-12-18] MEDS: K, MAG and/or Phos replacement - Verify level? MC SCH (08:00)
[2019-12-18] MEDS: vitamin D (cholecalciferol) 1,000 unit tablet NG SCH (08:00)
[2019-12-18] MEDS: atorvastatin 20mg tablet NG SCH (08:00)
[2019-12-18] MEDS: clopidogrel 75mg tablet NG SCH (08:00)
[2019-12-18] MEDS: apixaban 5mg tablet NG SCH ×2 (08:00→20:00)
[2019-12-18] MEDS: lactobacillus rhamnosus 10,000 MMU CELLS/CAPSULE NG SCH ×2 (08:00→20:00)
[2019-12-18] MEDS: aspirin 81mg tab.chew NG SCH (08:30)
[2019-12-18] MEDS: pantoprazole 40 MG vial IV SCH (08:52)
[2019-12-18] MEDS: docusate sodium 100mg/10ml UD cup NG SCH ×2 (08:52→20:00)
[2019-12-18] MEDS: methylPREDNISolone sod succ/PF 40mg inj. IV SCH (08:53)
[2019-12-18] MEDS: MVI, adult No.4 with vit. K 10 ML in dextrose 5% water 500ml 500 ML IV SCH ×2 (08:54)
[2019-12-18] MEDS: digoxin 250mcg/ml 2ml ampule IV SCH (08:54)
--- NOTE | 2019-12-18 09:21 | NUR ---
gave report to Dorota SUAZO
[2019-12-18] MEDS: clobetasol 0.05% cream 30gm TP SCH ×2 (09:58→20:34)
[2019-12-18 10:13] LABS: HEMOGLOBIN 7.3 g/dl (12.0-16.0); MEAN CORPUSCULAR HEMOGLOBIN 31.2 PG (27.0-31.0); MEAN CORPUSCULAR HGB CONC 33.2 g/dL (33.0-36.5); MEAN CORPUSCULAR VOLUME 93.8 FL (78-98); MEAN PLATELET VOLUME 10.3 FL (7.4-10.4); PLATELET COUNT 337 X10'3 (140-440); RED BLOOD COUNT 2.34 X10'6 (4.20-5.60); RED CELL DISTRIBUTION WIDTH 14.7 % (11.5-14.5)
[2019-12-18 10:22] LABS: WHITE BLOOD COUNT 31.1 X10'3 (4.5-11.0)
--- NOTE | 2019-12-18 12:08 | NUR ---
Dr Orellana aware of lactic acid 5.7, K 6.1, no urine output. He called urologist, Dr Spencer who will be taking pt to surgery NEIL.
[2019-12-18] MEDS ORDERED: midazolam 2 mg/2 ml injection ONE (13:43)
[2019-12-18] MEDS ORDERED: LIDOcaine 1% (10mg/ml) 2ml vial ONE (13:59)
[2019-12-18] MEDS ORDERED: etomidate 2mg/ml inj. IV ONE (14:05)
[2019-12-18] MEDS ORDERED: rocuronium 10mg/ml inj IV ONE (14:05)
[2019-12-18] MEDS ORDERED: amiodarone 150mg/dext, iso-os 100 ML IV ONE (14:13)
[2019-12-18] MEDS ORDERED: iohexol 300 MG/1 ML 50ml polymer ONE (14:23)
[2019-12-18] MEDS: vasopressin inj. 40 UNIT in normal saline 50ml IV soln 38 ML IV SCH ×2 (14:24→21:26)
[2019-12-18] MEDS ORDERED: insulin regular, human U-100 3ml vial - multi-dose IV SCH (14:50)
[2019-12-18] MEDS ORDERED: dextrose ORAL solution 15 GM/59 ML bottle PO PRN ×2 (14:50)
[2019-12-18] MEDS ORDERED: insulin Lispro (HumaLOG) vial - multi-dose SQ SCH (14:50)
[2019-12-18] MEDS ORDERED: dextrose 50%-water 50ml dispensing syringe IV PRN ×2 (14:50→19:25)
[2019-12-18] MEDS ORDERED: albuterol 2.5 MG/3 ML nebule CONTNEB PRN (14:50)
[2019-12-18] MEDS ORDERED: dextrose 50%-water 50ml dispensing syringe IV ONE (14:50)
[2019-12-18] MEDS ORDERED: MESSAGE TO PHARMACY PO ONE (14:50)
[2019-12-18] MEDS ORDERED: glucagon, human recombinant 1mg kit SUBCUT PRN (14:50)
[2019-12-18 14:58] LABS: MEAN CORPUSCULAR HEMOGLOBIN 30.8 PG (27.0-31.0); MEAN CORPUSCULAR HGB CONC 32.2 g/dL (33.0-36.5); MEAN CORPUSCULAR VOLUME 95.6 FL (78-98); MEAN PLATELET VOLUME 10.2 FL (7.4-10.4); PLATELET COUNT 320 X10'3 (140-440); RED BLOOD COUNT 2.18 X10'6 (4.20-5.60); RED CELL DISTRIBUTION WIDTH 14.9 % (11.5-14.5); WHITE BLOOD COUNT 20.4 X10'3 (4.5-11.0)
[2019-12-18 15:03] LABS: HEMATOCRIT 20.8 % (35.0-45.0); HEMOGLOBIN 6.7 g/dl (12.0-16.0)
[2019-12-18 15:11] LABS: ABG BASE EXCESS -10.1 mmol/L (-2.0-3.0); ABG HCO3 17.4 mmol/L (22.0-26.0); ABG OXYGEN SATURATION 89.5 % (95-98); ABG PCO2 (T) 47.4 mmHg (35.0-45.0); ABG PH (T) 7.183 (7.350-7.450); ABG PO2 (T) 80.4 mmHg (83-108); ALLEN'S TEST POSITIVE; FCOHb 0.2 % (0.5-1.5); FMetHb 0.6 % (0.3-1.12); FO2Hb 88.8 % (94-100); PEEP 8 cm H2O; RESPIRATORY RATE 12 b/min; TIDAL VOLUME 475 mL; TOTAL HEMOGLOBIN 6.7 G/dl (12.0-16.0)
[2019-12-18] MEDS ORDERED: sodium bicarbonate (8.4%) 1 mEq/ml syringe IV ONE ×2 (15:20→19:25)
[2019-12-18 15:26] LABS: ALBUMIN 1.8 G/DL (3.4-5.0); ALBUMIN/GLOBULIN RATIO 0.7 (1.1-1.5); ALKALINE PHOSPHATASE 135 IU/L (46-116); ANION GAP 16 (8-16); BILIRUBIN,TOTAL 1.2 MG/DL (0.1-1.0); BLOOD UREA NITROGEN 109 MG/DL (7-18); CALCIUM 6.6 MG/DL (8.5-10.1); CHLORIDE 89 MMOL/L (99-107); CREATININE 3.76 MG/DL (0.40-0.90); GLUCOSE 352 MG/DL (70-104); SODIUM 126 MMOL/L (135-145); TOTAL CARBON DIOXIDE 21.4 MMOL/L (24-32); TOTAL PROTEIN 4.5 G/DL (6.4-8.2); eGFR 12 ML/MIN
[2019-12-18 15:30] LABS: ALANINE AMINOTRANSFERASE 2322 U/L (12-78)
--- NOTE | 2019-12-18 15:30 | NUR ---
1330- BP 64/44. Levophed increased. called x 2 numbers, no answer so left message. 1358- Pt intubated using ett 7.5, 24 at the teeth. See code sheet for documentation of drugs pushed. 1420- Pt with BP 76/29. Vasopressin started. called again. No answer. 1430- BP 69/34, Vasopressin increased. 1435- Report given to Kim.
[2019-12-18 15:34] LABS: POTASSIUM 6.8 MMOL/L (3.5-5.1)
[2019-12-18] MEDS ORDERED: sodium bicarbonate (8.4%) inj. 1 MEQ/ML ML ONE ×3 (15:37→23:16)
[2019-12-18] MEDS ORDERED: MIDAZolam 5mg/ml 2ml vial IV ONE (15:45)
[2019-12-18 15:56] LABS: ASPARTATE AMINO TRANSFERASE 6488 U/L (10-37)
[2019-12-18] MEDS ORDERED: midazolam 100mg in NS 100ml 100 ML IV PRN (16:08)
[2019-12-18] MEDS ORDERED: FENTANYL-0.9 % NACL/PF 100 ML IV PRN (16:08)
--- NOTE | 2019-12-18 16:30 | NUR ---
Patient went to OR for procedure/stent with Dr. Spencer.
--- NOTE | 2019-12-18 17:23 | NUR ---
Read note from 1412 stating patient was found in VTACH, CPR started, amiodarone IVP given. Patient intubated prior to "code", approximately 1-2hours. Arrived to patient room at approximately 1600 to assist in care of patient.
[2019-12-18] MEDS ORDERED: amiodarone inj. 450 MG in dextrose 5%-water 241 ML IV SCH (17:33)
--- NOTE | 2019-12-18 17:45 | NUR ---
Returned from OR with brachial arterial line. Reported bilateral ureteral stents.
[2019-12-18] MEDS ORDERED: sodium polystyrene sulfonate 15gm/60ml oral suspension PO ONE (17:50)
[2019-12-18] MEDS: furosemide inj 100 ML IV SCH (18:00)
[2019-12-18] MEDS: sodium bicarbonate (8.4%) inj. 75 MEQ in dextrose 5% water 500ml 500 ML IV SCH ×2 (18:06→21:05)
[2019-12-18] MEDS ORDERED: vancomycin/NS 1 GM ADD-VANTAGE 250 ML X 1 DOSE IV ONE (18:20)
[2019-12-18] MEDS ORDERED: vancomycin/NS 1 GM ADD-VANTAGE 250 ML X 1 DOSE IV PRN (18:20)
--- NOTE | 2019-12-18 18:37 | NUR ---
Problems reprioritized. Patient report given, questions answered & plan of care reviewed with Bertha Jones RN.
[2019-12-18 18:51] LABS: HEMOGLOBIN 8.3 g/dl (12.0-16.0); MEAN CORPUSCULAR HEMOGLOBIN 32.2 PG (27.0-31.0); MEAN CORPUSCULAR HGB CONC 33.2 g/dL (33.0-36.5); MEAN CORPUSCULAR VOLUME 96.9 FL (78-98); MEAN PLATELET VOLUME 10.1 FL (7.4-10.4); PLATELET COUNT 274 X10'3 (140-440); RED BLOOD COUNT 2.58 X10'6 (4.20-5.60); RED CELL DISTRIBUTION WIDTH 14.5 % (11.5-14.5); WHITE BLOOD COUNT 8.1 X10'3 (4.5-11.0)
[2019-12-18 19:06] LABS: ALBUMIN 1.6 G/DL (3.4-5.0); ANION GAP 16 (8-16); BLOOD UREA NITROGEN 109 MG/DL (7-18); BUN/CREATININE RATIO 28.4 (6.6-38.0); CALCIUM 6.5 MG/DL (8.5-10.1); CHLORIDE 93 MMOL/L (99-107); CREATININE 3.84 MG/DL (0.40-0.90); SODIUM 129 MMOL/L (135-145); TOTAL CARBON DIOXIDE 20.4 MMOL/L (24-32); eGFR 11 ML/MIN
[2019-12-18 19:09] LABS: GLUCOSE 663 MG/DL (70-104)
[2019-12-18 19:10] LABS: POTASSIUM 7.1 MMOL/L (3.5-5.1)
[2019-12-18] MEDS ORDERED: Insulin Reg/NS 100units/100mL 100 ML IV SCH (19:24)
[2019-12-18] MEDS ORDERED: albuterol 2.5 MG/3 ML nebule CONTNEB STA (19:24)
[2019-12-18] MEDS ORDERED: CALCIUM GLUC 1gm/50ml NACL,iso 50 ML IV SCH (19:25)
[2019-12-18] MEDS ORDERED: insulin regular, human U-100 3ml vial - multi-dose IV ONE (19:25)
[2019-12-18] MEDS: Trace element-5 inj. 1 ML in AA 5 %/CALCIUM/LYTES/DEXT 20% 2,000 ML IV SCH (19:50)
[2019-12-18] MEDS ORDERED: VANCOmycin 1250MG/NS 250ml Bag 250 ML IV SCH (20:00)
[2019-12-18] MEDS: insulin glargine (Lantus) pen - multi-dose SQ SCH (21:00)
[2019-12-18] MEDS ORDERED: insulin glargine (Lantus) pen - multi-dose SQ SCH (21:00)
[2019-12-18] MEDS: fat emulsion IV bag 250 ML IV SCH (21:26)
[2019-12-18] MEDS ORDERED: sodium bicarbonate (8.4%) inj. 1 MEQ/ML ML IV ONE (23:15)
[2019-12-18] MEDS ORDERED: calcium chloride 100 MG/1 ML inj IV ONE ×2 (23:15)
[2019-12-18] MEDS ORDERED: epiNEPHrine 1 mg/ml inj ONE (23:21)
[2019-12-18 23:57] LABS: ALBUMIN 1.3 G/DL (3.4-5.0); ANION GAP 19 (8-16); BLOOD UREA NITROGEN 106 MG/DL (7-18); BUN/CREATININE RATIO 25.8 (6.6-38.0); CALCIUM 6.2 MG/DL (8.5-10.1); CHLORIDE 93 MMOL/L (99-107); CREATININE 4.11 MG/DL (0.40-0.90); GLUCOSE 310 MG/DL (70-104); MAGNESIUM 2.2 MG/DL (1.5-2.4); SODIUM 133 MMOL/L (135-145); eGFR 10 ML/MIN
[2019-12-19] VITALS: BP 92/40
[2019-12-19 00:07] LABS: POTASSIUM 7.3 MMOL/L (3.5-5.1)
[2019-12-19] MEDS: ceFAZolin/D5W- 1GM premix 50 ML IV SCH ×2 (00:21→00:39)
[2019-12-19 00:25] LABS: PHOSPHORUS 15.1 MG/DL (2.3-4.5)
--- NOTE | 2019-12-19 00:45 | NUR ---
183..Patient in room ICU 2042. I have received report from Arron SUAZO and had the opportunity to ask questions and assume patient care.
--- NOTE | 2019-12-19 00:46 | NUR ---
1999..Assessment as noted, vasopressin and levophed infusing at max rates, bp remains low and unstable. Charis PLATE GRAINER spoke with and son, pt to remain DNR. Family at bedside.
--- NOTE | 2019-12-19 00:48 | NUR ---
2300..Monitor with rhythm changes, meds given as ordered, with little effect.
[2019-12-19 01:00] VITALS: BP 70/32
[2019-12-19 02:00] VITALS: BP 40/30
--- NOTE | 2019-12-19 02:57 | NUR ---
2315..Family notified of changes in pt status.
--- NOTE | 2019-12-19 02:58 | NUR ---
204..Monitor with asystolic rhythm. RN IS TO DOCUMENT YES TO ALL APPLICABLE AREAS Pronouncement of :yes 1. Time Physician Notified:209 2. Date of :12/19/2019 3. Time of : 204 4. DNR/Withdraw life support documented:yes 5. Monitor strip has been placed on chart:yes 6. Assessment process is of one-minute duration and includes following criteria: a) Patient is unresponsive to all stimuli: yes b) Pupils fixed and non-reactive:yes c) Auscultation of precordium reveals absence of heart tones:yes d) Auscultation of lungs reveals absence of breath sounds:yes e) Absence of blood pressure / all vital signs:yes f) QRS complexes are not present on monitor / EKG strip:yes g) Pacer spikes without capture:na 4. Comments: family notified, all belongings sent to mortuary with remains, family aware, given list of belongings
[2019-12-19] MEDS ORDERED: VANCOMYCIN LEVEL IV SCH (03:00)
--- NOTE | 2019-12-19 03:02 | NUR ---
0225..[employer] notified, case #[id number].
--- NOTE | 2019-12-19 03:47 | NUR ---
0320..Remains received by Samuel, all belongings sent with pt.
== END 2019-12-19 02:05 | disposition expired | DRG 987 ==
LOC: ER 22:24 → ICU 2S 23:16
PROVIDERS: ADMIT Internal Medicine Critical Care Medicine
PROC: 5A12012 Performance of Cardiac Output, Single, Manual (ICD-10-PCS; 2019-12-02)
PROC: 4A023N8 Measurement of Cardiac Sampling and Pressure, Bilateral, Percutaneous Approach (ICD-10-PCS; 2019-12-02)
PROC: B2111ZZ Fluoroscopy of Multiple Coronary Arteries using Low Osmolar Contrast (ICD-10-PCS; 2019-12-02)
PROC: B2151ZZ Fluoroscopy of Left Heart using Low Osmolar Contrast (ICD-10-PCS; 2019-12-02)
PROC: B41F1ZZ Fluoroscopy of Right Lower Extremity Arteries using Low Osmolar Contrast (ICD-10-PCS; 2019-12-02)
PROC: 5A1955Z Respiratory Ventilation, Greater than 96 Consecutive Hours (ICD-10-PCS; principal; 2019-12-03)
PROC: 0BH17EZ Insertion of Endotracheal Airway into Trachea, Via Natural or Artificial Opening (ICD-10-PCS; 2019-12-03)
PROC: 02HV33Z Insertion of Infusion Device into Superior Vena Cava, Percutaneous Approach (ICD-10-PCS; 2019-12-04)
PROC: B548ZZA Ultrasonography of Superior Vena Cava, Guidance (ICD-10-PCS; 2019-12-04)
PROC: 30233N1 Transfusion of Nonautologous Red Blood Cells into Peripheral Vein, Percutaneous Approach (ICD-10-PCS; 2019-12-05)
PROC: 0W9B3ZZ Drainage of Left Pleural Cavity, Percutaneous Approach (ICD-10-PCS; 2019-12-09)
PROC: 0W993ZZ Drainage of Right Pleural Cavity, Percutaneous Approach (ICD-10-PCS; 2019-12-09)
PROC: 5A09557 Assistance with Respiratory Ventilation, Greater than 96 Consecutive Hours, Continuous Positive Airway Pressure (ICD-10-PCS; 2019-12-12)
PROC: 0T788DZ Dilation of Bilateral Ureters with Intraluminal Device, Via Natural or Artificial Opening Endoscopic (ICD-10-PCS; 2019-12-18)
PROC: 0BH17EZ Insertion of Endotracheal Airway into Trachea, Via Natural or Artificial Opening (ICD-10-PCS; 2019-12-18)
PROC: 5A1935Z Respiratory Ventilation, Less than 24 Consecutive Hours (ICD-10-PCS; 2019-12-18)
PROC: BT141ZZ Fluoroscopy of Kidneys, Ureters and Bladder using Low Osmolar Contrast (ICD-10-PCS; 2019-12-18)
DX: I21.09 ST elevation (STEMI) myocardial infarction involving other coronary artery of anterior wall (principal); J69.0 Pneumonitis due to inhalation of food and vomit; J15.211 Pneumonia due to Methicillin susceptible Staphylococcus aureus; J96.01 Acute respiratory failure with hypoxia; N17.9 Acute kidney failure, unspecified; E87.3 Alkalosis; I42.9 Cardiomyopathy, unspecified; I47.2 Ventricular tachycardia; I48.19 Other persistent atrial fibrillation; J91.8 Pleural effusion in other conditions classified elsewhere; N13.30 Unspecified hydronephrosis; Z99.11 Dependence on respirator [ventilator] status; I49.01 Ventricular fibrillation; E78.00 Pure hypercholesterolemia, unspecified; E87.70 Fluid overload, unspecified; I25.10 Atherosclerotic heart disease of native coronary artery without angina pectoris; N32.89 Other specified disorders of bladder; N94.89 Other specified conditions associated with female genital organs and menstrual cycle; R57.0 Cardiogenic shock; Z66 Do not resuscitate; Z79.01 Long term (current) use of anticoagulants; Z95.1 Presence of aortocoronary bypass graft; Z88.5 Allergy status to narcotic agent; Z79.899 Other long term (current) drug therapy; Z79.82 Long term (current) use of aspirin
CPT/HCPCS: 32555; 36573; 93306; 93460; 96374; 99285; C9606; 36415; 36430; 36600; 71045; 74176; 76000; 76604; 76700; 76856; 76937; 80048; 80053; 80069; 80076; 80162; 82272; 82550; 82553; 82570; 82803; 82810; 82948; 83036; 83605; 83735; 84100; 84132; 84133; 84134; 84145; 84300; 84484; 85014; 85018; 85025; 85027; 85347; 85379; 85384; 85610; 85730; 86885; 86900; 86901; 86920; 87040; 87070; 87077; 87081; 87186; 87207; 92508; 92616; 92950; 93005; 93970; 94002; 94003; 94640; 94660; 94760; 97110; 97162; 97530; A4338; A4357; A4618; A5120; A6258; C1758; C1760; C1769; C1894; C2617; C9113; G0378; J0171; J0690; J1160; J1170; J1250; J1644; J1650; J1815; J1940; J2001; J2020; J2250; J2405; J2543; J2765; J2920; J3010; J3246; J3370; J3430; J3475; J3480; J3490; J7030; J7040; J7060; P9016; P9045; Q9967